=== PATIENT | female | born 1945 | race Caucasian/White ===

== ENCOUNTER 2017-03-10 13:39 | Inpatient (IN) | payer MEDICARE, OTHER ==
[2017-03-10] VITALS (12 sets, daily range): BP systolic 84–113; BP diastolic 48–67
[~2017-03-10] VITALS: Ht 157.5 cm; Wt 39.9 kg
[~2017-03-10 13:39] MED LIST: GABA-826 PO; MAGN400T26 PO; OXYC5TAB3 PO; PANT40TA5 PO; SUCR1TAB26 PO
[2017-03-10] MEDS ORDERED: DULO30CA2 PO (14:15)
[2017-03-10] MEDS ORDERED: PLEASE ENTER HEIGHT AND WEIGHT MC SCH (14:30)
[2017-03-10] MEDS ORDERED: SODIUM CHLORIDE FLUSH 10ML SYR IVF ONE (14:30)
[2017-03-10 14:56] LABS: BLOOD UREA NITROGEN 13 mg/dL (7-18)
[2017-03-10 15:07] LABS: ASPARTATE AMINO TRANSFERASE 19 U/L (15-37)
[2017-03-10 15:08] LABS: ACETAMINOPHEN < 2 mcg/mL (10-30)
[2017-03-10 15:09] LABS: DIFF TOTAL CELLS COUNTED 100 CELL DIFF
[2017-03-10 15:11] LABS: VERIFY COUNTS? YES
[2017-03-10 15:12] LABS: ANISOCYTOSIS 1+; HYPOCHROMIA 1+; OVALOCYTES 1+
[2017-03-10 15:13] LABS: POLYCHROMASIA 1+
[2017-03-10 15:38] LABS: TOTAL IRON BINDING CAPACITY 342 mcg/dL (250-450)
[2017-03-10] MEDS ORDERED: SODIUM CHLORIDE FLUSH 10ML SYR IVF PRN (16:30)
[2017-03-10] MEDS ORDERED: ONDANSETRON 2MG/ML, 2ML IVPush PRN (17:00)
[2017-03-10] MEDS ORDERED: POLYETHYLENE GLYCOL 17 GM PACKET PO PRN (17:00)
[2017-03-10] MEDS ORDERED: ACETAMINOPHEN 325 MG TABLET PO PRN (17:00)
[2017-03-10] MEDS: OXYcodone IR 5MG TABLET PO PRN (19:45)
[2017-03-11 01:32] VITALS: BP 112/64
[2017-03-11 02:23] LABS: DAU SCREEN DISCLAIMER
[2017-03-11 02:30] LABS: PATH.CAST-FLAG NOT PRESENT; SPERM-FLAG NOT PRESENT; SRC-FLAG NOT PRESENT; XTAL-FLAG NOT PRESENT; YLC-FLAG NOT PRESENT
[2017-03-11 05:52] LABS: ASPARTATE AMINO TRANSFERASE 22 U/L (15-37); BLOOD UREA NITROGEN 13 mg/dL (7-18)
[2017-03-11] MEDS ORDERED: POTASSIUM CHLORIDE 20 MEQ TAB.ER.PRT PO ONE (07:00)
[2017-03-11 07:10] VITALS: BP 106/58
[2017-03-11] MEDS ORDERED: PANTOPRAZOLE 40 MG IV IVPush SCH (07:30)
[2017-03-11] MEDS: DULOXETINE 30 MG CAPSULE.DR PO SCH (08:35)
[2017-03-11] MEDS: PANTOPRAZOLE 40 MG IV IVPush SCH ×3 (08:35→20:51)
[2017-03-11] MEDS: CEFTRIAXONE PMX 1GM/50ML 50 ML IV SCH (08:35)
[2017-03-11] MEDS: SENNA/DOCUSATE TABLET PO SCH (08:35)
[2017-03-11 12:57] VITALS: BP 98/58
[2017-03-11] MEDS: OXYcodone IR 5MG TABLET PO PRN (13:58)
[2017-03-11] MEDS ORDERED: GOLYTELY 4,000ML ORAL.SOL ONE (18:37)
[2017-03-11 19:00] VITALS: BP 106/68
[2017-03-11] MEDS ORDERED: GOLYTELY 4,000ML ORAL.SOL PO ONE (20:00)
[2017-03-12 01:30] VITALS: BP 106/61
[2017-03-12 05:37] LABS: BLOOD UREA NITROGEN 9 mg/dL (7-18)
[2017-03-12 07:00] VITALS: BP 144/77
[2017-03-12] MEDS: PANTOPRAZOLE 40 MG IV IVPush SCH ×2 (08:08→21:17)
[2017-03-12] MEDS: CEFTRIAXONE PMX 1GM/50ML 50 ML IV SCH (08:08)
[2017-03-12] MEDS ORDERED: FENTANYL PF 100 MCG/2ML ONE (08:48)
[2017-03-12] MEDS ORDERED: MIDAZOLAM 1 MG/ML, 5ML ONE ×2 (08:48)
[2017-03-12] MEDS ORDERED: DIPHENHYDRAMINE 50 MG/ML, 1ML ONE (08:58)
[2017-03-12] MEDS: SENNA/DOCUSATE TABLET PO SCH (09:00)
[2017-03-12 14:31] VITALS: BP 120/71
[2017-03-12] MEDS: DULOXETINE 30 MG CAPSULE.DR PO SCH (15:48)
[2017-03-12 19:45] VITALS: BP 115/66
[2017-03-12] MEDS: OXYcodone IR 5MG TABLET PO PRN (21:17)
[2017-03-13 01:00] VITALS: BP 128/74
[2017-03-13 05:43] LABS: BLOOD UREA NITROGEN 6 mg/dL (7-18)
[2017-03-13 05:46] LABS: ASPARTATE AMINO TRANSFERASE 28 U/L (15-37)
[2017-03-13 06:44] VITALS: BP 121/70
[2017-03-13] MEDS: SENNA/DOCUSATE TABLET PO SCH (09:00)
[2017-03-13] MEDS: CEFTRIAXONE PMX 1GM/50ML 50 ML IV SCH (09:00)
[2017-03-13] MEDS: DULOXETINE 30 MG CAPSULE.DR PO SCH (10:35)
[2017-03-13] MEDS: PANTOPRAZOLE 40 MG IV IVPush SCH ×2 (10:35→20:44)
[2017-03-13 12:43] VITALS: BP 101/65
[2017-03-13 19:45] VITALS: BP 130/82
[2017-03-13] MEDS: OXYcodone IR 5MG TABLET PO PRN (20:44)
[2017-03-13] MEDS ORDERED: OMNIPAQUE 350 MG/ML, 100ML BOTTLE ONE (21:28)
[2017-03-14] VITALS (7 sets, daily range): BP systolic 95–132; BP diastolic 52–76
[2017-03-14 05:42] LABS: ASPARTATE AMINO TRANSFERASE 28 U/L (15-37); BLOOD UREA NITROGEN 7 mg/dL (7-18)
[2017-03-14 06:31] LABS: DIFF TOTAL CELLS COUNTED 100 CELL DIFF
[2017-03-14 06:33] LABS: VERIFY COUNTS? YES
[2017-03-14 06:34] LABS: POLYCHROMASIA 1+
[2017-03-14 06:35] LABS: ANISOCYTOSIS 1+; OVALOCYTES 1+
[2017-03-14] MEDS: CEFTRIAXONE PMX 1GM/50ML 50 ML IV SCH (08:17)
[2017-03-14] MEDS: DULOXETINE 30 MG CAPSULE.DR PO SCH (08:17)
[2017-03-14] MEDS: SENNA/DOCUSATE TABLET PO SCH (08:17)
[2017-03-14] MEDS: PANTOPRAZOLE 40 MG IV IVPush SCH ×2 (08:17→20:42)
[2017-03-14] MEDS: OXYcodone IR 5MG TABLET PO PRN (20:42)
[2017-03-15 01:07] VITALS: BP 138/70
[2017-03-15 01:09] VITALS: BP 138/70
[2017-03-15 05:50] LABS: DIFF TOTAL CELLS COUNTED 100 CELL DIFF
[2017-03-15 05:58] LABS: BLOOD UREA NITROGEN 7 mg/dL (7-18)
[2017-03-15 07:43] VITALS: BP 123/74
[2017-03-15] MEDS: CEFTRIAXONE PMX 1GM/50ML 50 ML IV SCH (08:12)
[2017-03-15] MEDS: PANTOPRAZOLE 40 MG IV IVPush SCH (08:12)
[2017-03-15] MEDS: DULOXETINE 30 MG CAPSULE.DR PO SCH (08:13)
[2017-03-15] MEDS: SENNA/DOCUSATE TABLET PO SCH (09:00)
[2017-03-15 09:45] LABS: ANISOCYTOSIS 1+; VERIFY COUNTS? YES
[2017-03-15 13:07] LABS: DEAMIDATED GLIADIN IGA 6 units (0-19); IMMUNOGLOBULIN A 321 mg/dL (64-422)
[2017-03-15 13:27] VITALS: BP 125/74
[2017-03-15] MEDS ORDERED: POTASSIUM CHLORIDE 20 MEQ TAB.ER.PRT PO ONE (14:30)
[2017-03-15] MEDS: PANTOPROZOLE 40MG TABLET PO SCH (17:44)
[2017-03-15] MEDS: PROPRANOLOL 10 MG TABLET PO SCH ×2 (17:44→22:30)
[2017-03-15 19:23] VITALS: BP 138/74
[2017-03-15] MEDS: OXYcodone IR 5MG TABLET PO PRN (20:48)
[2017-03-16 00:57] VITALS: BP 121/60
[2017-03-16 05:25] LABS: BLOOD UREA NITROGEN 8 mg/dL (7-18)
[2017-03-16] MEDS: PROPRANOLOL 10 MG TABLET PO SCH (06:03)
[2017-03-16] MEDS: CEFTRIAXONE PMX 1GM/50ML 50 ML IV SCH (08:17)
[2017-03-16] MEDS: DULOXETINE 30 MG CAPSULE.DR PO SCH (08:17)
[2017-03-16] MEDS: PANTOPROZOLE 40MG TABLET PO SCH (08:17)
[2017-03-16] MEDS: SENNA/DOCUSATE TABLET PO SCH (08:17)
[2017-03-16 08:22] VITALS: BP 123/73
[2017-03-16 14:02] VITALS: BP 132/85
[2017-03-16] MEDS ORDERED: PANT40TA5 PO (14:51)
[2017-03-16] MEDS ORDERED: PROP10TA PO (14:51)
== END 2017-03-16 17:00 | disposition home health service (06) | DRG 380 ==
LOC: ED 14:10 → EDIP 16:25 → 4EST 17:51 → 4WST 03-13 23:51 → DCLOUNGE 03-16 16:02
PROVIDERS: ADMIT Hospitalist; ATTEND Hospitalist
PROC: 0DB98ZX Excision of Duodenum, Via Natural or Artificial Opening Endoscopic, Diagnostic (ICD-10-PCS; 2017-03-12)
PROC: 0DB68ZX Excision of Stomach, Via Natural or Artificial Opening Endoscopic, Diagnostic (ICD-10-PCS; 2017-03-12)
PROC: 0DBH8ZX Excision of Cecum, Via Natural or Artificial Opening Endoscopic, Diagnostic (ICD-10-PCS; 2017-03-12)
PROC: 0DBP8ZX Excision of Rectum, Via Natural or Artificial Opening Endoscopic, Diagnostic (ICD-10-PCS; 2017-03-12)
PROC: 0DBN8ZZ Excision of Sigmoid Colon, Via Natural or Artificial Opening Endoscopic (ICD-10-PCS; 2017-03-12)
PROC: 30233N1 Transfusion of Nonautologous Red Blood Cells into Peripheral Vein, Percutaneous Approach (ICD-10-PCS; principal; 2017-03-12 09:00)
DX: K22.10 Ulcer of esophagus without bleeding (principal); E43 Unspecified severe protein-calorie malnutrition; E87.1 Hypo-osmolality and hyponatremia; K86.1 Other chronic pancreatitis; N39.0 Urinary tract infection, site not specified; K25.4 Chronic or unspecified gastric ulcer with hemorrhage; K22.6 Gastro-esophageal laceration-hemorrhage syndrome; I86.4 Gastric varices; D69.6 Thrombocytopenia, unspecified; E03.9 Hypothyroidism, unspecified; D50.0 Iron deficiency anemia secondary to blood loss (chronic); D72.1 Eosinophilia; D73.5 Infarction of spleen; F32.9 Major depressive disorder, single episode, unspecified; F41.9 Anxiety disorder, unspecified; F43.20 Adjustment disorder, unspecified; G62.9 Polyneuropathy, unspecified; G89.29 Other chronic pain; I25.10 Atherosclerotic heart disease of native coronary artery without angina pectoris; K29.50 Unspecified chronic gastritis without bleeding; K52.9 Noninfective gastroenteritis and colitis, unspecified; K57.30 Diverticulosis of large intestine without perforation or abscess without bleeding; K64.9 Unspecified hemorrhoids; K76.0 Fatty (change of) liver, not elsewhere classified; N20.0 Calculus of kidney; R45.850 Homicidal ideations; I95.9 Hypotension, unspecified; K64.4 Residual hemorrhoidal skin tags; D12.5 Benign neoplasm of sigmoid colon; D50.9 Iron deficiency anemia, unspecified; Z79.1 Long term (current) use of non-steroidal anti-inflammatories (NSAID); Z87.11 Personal history of peptic ulcer disease; Z87.19 Personal history of other diseases of the digestive system; Z87.891 Personal history of nicotine dependence
CPT/HCPCS: 36415; 36430; 71010; 74177; 76700; 80048; 80053; 80307; 80329; 81001; 82533; 82607; 82728; 82746; 82784; 83010; 83516; 83540; 83550; 83615; 83690; 83735; 84425; 84443; 85018; 85025; 85610; 85730; 86803; 86850; 86900; 86923; 87077; 87086; 87186; 88305; 93005; 96360; 96361; 99152; 99153; J0696; J2250; J3010; Q9967; C9113; G0480; J1200; P9016

== ENCOUNTER 2017-05-31 14:19 | Inpatient (IN) | payer MEDICARE, OTHER ==
[2017-05-31] VITALS (13 sets, daily range): BP systolic 113–144; BP diastolic 52–88
[~2017-05-31] VITALS: Ht 160 cm; Wt 44.0 kg
[~2017-05-31 14:19] MED LIST changes: +DULO30CA2 PO; +PROP10TA PO; -SUCR1TAB26 PO; +SUCR1TAB33 PO
[2017-05-31] MEDS ORDERED: PANTOPRAZOLE 80 MG in SODIUM CHLORIDE 0.9% 100 ML IV SCH ×3 (14:26→17:00)
[2017-05-31] MEDS ORDERED: PANTOPRAZOLE 80 MG in SODIUM CHLORIDE 0.9% 50 ML IVPB ONE (14:26)
[2017-05-31] MEDS ORDERED: PLEASE ENTER HEIGHT AND WEIGHT MC SCH (14:30)
[2017-05-31] MEDS ORDERED: PLEASE ENTER ALLERGIES MC SCH ×2 (14:30)
[2017-05-31] MEDS ORDERED: SODIUM CHLORIDE 0.9% 1,000ML IVBOLUS ONE (14:30)
[2017-05-31] MEDS ORDERED: IBUP-1221 PO (14:45)
[2017-05-31 15:01] LABS: ASPARTATE AMINO TRANSFERASE 16 U/L (15-37); BLOOD UREA NITROGEN 15 mg/dL (7-18)
[2017-05-31 15:10] LABS: WHITE BLOOD COUNT 2.8 x10^3/uL (3.4-10)
[2017-05-31 15:12] LABS: HEMATOCRIT 12.2 % (34.6-47.8); HEMOGLOBIN 3.9 g/dL (11.7-16.4)
[2017-05-31 15:57] LABS: DIFF TOTAL CELLS COUNTED 100 CELL DIFF
[2017-05-31 16:00] LABS: VERIFY COUNTS? YES
[2017-05-31 16:02] LABS: HYPOCHROMIA 1+
[2017-05-31 16:05] LABS: ANISOCYTOSIS 2+; MICROCYTOSIS 2+; POLYCHROMASIA 1+
[2017-05-31 16:06] LABS: OVALOCYTES 2+
[2017-05-31] MEDS ORDERED: ONDANSETRON 2MG/ML, 2ML IVPush PRN (16:30)
[2017-05-31] MEDS ORDERED: ACETAMINOPHEN 325 MG TABLET PO PRN (16:30)
[2017-05-31] MEDS: PANTOPRAZOLE 80 MG in SODIUM CHLORIDE 0.9% 100 ML IV SCH (21:35)
[2017-06-01 00:06] VITALS: BP 132/78
[2017-06-01 01:40] VITALS: BP 112/60
[2017-06-01 02:51] LABS: HEMATOCRIT 31.3 % (34.6-47.8); HEMOGLOBIN 10.3 g/dL (11.7-16.4); WHITE BLOOD COUNT 4.1 x10^3/uL (3.4-10)
[2017-06-01 03:01] LABS: ASPARTATE AMINO TRANSFERASE 17 U/L (15-37); BLOOD UREA NITROGEN 16 mg/dL (7-18)
[2017-06-01] MEDS: PANTOPRAZOLE 80 MG in SODIUM CHLORIDE 0.9% 100 ML IV SCH (07:49)
[2017-06-01] MEDS: SODIUM CHLORIDE 0.9% 1,000 ML IV SCH ×3 (07:50→10:36)
[2017-06-01 09:19] LABS: HEMOGLOBIN 10.6 g/dL (11.7-16.4)
[2017-06-01] MEDS ORDERED: POTASSIUM CHLORIDE 40 MEQ in SODIUM CHLORIDE 0.9% 500 ML IV ONE (10:00)
[2017-06-01] MEDS: PANTOPRAZOLE 40 MG IV IVPush SCH ×2 (10:30→21:50)
[2017-06-01 14:33] VITALS: BP 156/88
[2017-06-01 14:54] LABS: HEMATOCRIT 31.5 % (34.6-47.8); HEMOGLOBIN 10.5 g/dL (11.7-16.4)
[2017-06-01 20:48] VITALS: BP 136/82
[2017-06-01 21:15] LABS: HEMATOCRIT 31.8 % (34.6-47.8); HEMOGLOBIN 10.5 g/dL (11.7-16.4)
[2017-06-02 01:03] VITALS: BP 153/84
[2017-06-02 02:44] LABS: HEMATOCRIT 30.2 % (34.6-47.8); HEMOGLOBIN 10.1 g/dL (11.7-16.4); WHITE BLOOD COUNT 3.8 x10^3/uL (3.4-10)
[2017-06-02 02:52] LABS: BLOOD UREA NITROGEN 13 mg/dL (7-18)
[2017-06-02] MEDS ORDERED: POTASSIUM CHLORIDE 40 MEQ in SODIUM CHLORIDE 0.9% 500 ML IV ONE (07:00)
[2017-06-02] MEDS ORDERED: MAGNESIUM SULFATE PMX 2GM/50ML 50 ML IV ONE (07:00)
[2017-06-02] MEDS: PANTOPRAZOLE 40 MG IV IVPush SCH ×2 (08:26→20:48)
[2017-06-02 08:30] VITALS: BP 141/88
[2017-06-02] MEDS: POTASSIUM CHLORIDE 20 MEQ TAB.ER.PRT PO SCH ×2 (13:19→21:46)
[2017-06-02 13:25] VITALS: BP 146/80
[2017-06-02] MEDS: SODIUM BICARBONATE 8.4% 150 MEQ in DEXTROSE 5% 1,000 ML IV SCH (15:58)
[2017-06-02 20:02] VITALS: BP 160/95
[2017-06-03 01:02] VITALS: BP 154/90
[2017-06-03 02:45] LABS: HEMATOCRIT 31.7 % (34.6-47.8); HEMOGLOBIN 10.4 g/dL (11.7-16.4); WHITE BLOOD COUNT 3.5 x10^3/uL (3.4-10)
[2017-06-03 02:52] LABS: ASPARTATE AMINO TRANSFERASE 19 U/L (15-37); BLOOD UREA NITROGEN 8 mg/dL (7-18)
[2017-06-03 06:53] VITALS: BP 153/93
[2017-06-03 08:35] LABS: HEMATOCRIT 30.9 % (34.6-47.8); HEMOGLOBIN 10.1 g/dL (11.7-16.4)
[2017-06-03] MEDS: SODIUM BICARBONATE 8.4% 150 MEQ in DEXTROSE 5% 1,000 ML IV SCH (08:47)
[2017-06-03] MEDS: POTASSIUM CHLORIDE 20 MEQ TAB.ER.PRT PO SCH (08:47)
[2017-06-03] MEDS: PANTOPRAZOLE 40 MG IV IVPush SCH ×2 (08:47→20:46)
[2017-06-03] MEDS ORDERED: POTASSIUM PHOSPHATE 44 MEQ in SODIUM CHLORIDE 0.9% 500 ML IV ONE (10:00)
[2017-06-03 13:08] VITALS: BP 162/91
[2017-06-03 14:31] LABS: HEMATOCRIT 32.3 % (34.6-47.8); HEMOGLOBIN 10.5 g/dL (11.7-16.4)
[2017-06-03] MEDS ORDERED: ONDANSETRON 2MG/ML, 2ML IVPush PRN (16:30)
[2017-06-03] MEDS ORDERED: ACETAMINOPHEN 325 MG TABLET PO PRN (16:30)
[2017-06-03 19:23] VITALS: BP 145/80
[2017-06-03 20:57] LABS: HEMATOCRIT 29.5 % (34.6-47.8); HEMOGLOBIN 9.6 g/dL (11.7-16.4)
[2017-06-04 02:37] LABS: HEMATOCRIT 29.4 % (34.6-47.8); HEMOGLOBIN 9.6 g/dL (11.7-16.4); WHITE BLOOD COUNT 3.9 x10^3/uL (3.4-10)
[2017-06-04 02:42] VITALS: BP 123/75
[2017-06-04 02:49] LABS: ASPARTATE AMINO TRANSFERASE 19 U/L (15-37); BLOOD UREA NITROGEN 5 mg/dL (7-18)
[2017-06-04 08:35] LABS: HEMATOCRIT 30.5 % (34.6-47.8); HEMOGLOBIN 9.9 g/dL (11.7-16.4)
[2017-06-04] MEDS ORDERED: ACET325T14 PO (08:40)
[2017-06-04] MEDS ORDERED: TRAM50TA2 PO (08:40)
[2017-06-04] MEDS ORDERED: ONDA4TAB13 SL (08:40)
[2017-06-04] MEDS ORDERED: OMEP-110 PO (08:40)
[2017-06-04] MEDS ORDERED: MAGNESIUM SULFATE PMX 4GM/100M 100 ML IV ONE (09:00)
[2017-06-04 09:09] VITALS: BP 141/79
[2017-06-04] MEDS: PANTOPRAZOLE 40 MG IV IVPush SCH (09:21)
[2017-06-04 13:24] VITALS: BP 126/79
[2017-06-04 14:03] LABS: HEMATOCRIT 32.2 % (34.6-47.8); HEMOGLOBIN 10.5 g/dL (11.7-16.4)
== END 2017-06-04 14:55 | disposition home or self-care (01) | DRG 380 ==
LOC: MERGE 14:19 → ED 16:04 → CCU 16:23 → 4NOR 06-01 13:42 → DCLOUNGE 06-04 14:30
PROVIDERS: ADMIT Hospitalist; ATTEND Hospitalist
PROC: 30233N1 Transfusion of Nonautologous Red Blood Cells into Peripheral Vein, Percutaneous Approach (ICD-10-PCS; principal; 2017-05-31)
DX: K22.11 Ulcer of esophagus with bleeding (principal); E43 Unspecified severe protein-calorie malnutrition; N17.0 Acute kidney failure with tubular necrosis; E87.2 Acidosis; K92.1 Melena; D69.3 Immune thrombocytopenic purpura; G62.9 Polyneuropathy, unspecified; Z68.1 Body mass index [BMI] 19.9 or less, adult; E83.42 Hypomagnesemia; D50.9 Iron deficiency anemia, unspecified; D72.819 Decreased white blood cell count, unspecified; E83.39 Other disorders of phosphorus metabolism; F43.20 Adjustment disorder, unspecified; K57.90 Diverticulosis of intestine, part unspecified, without perforation or abscess without bleeding; E87.6 Hypokalemia; I10 Essential (primary) hypertension; I25.10 Atherosclerotic heart disease of native coronary artery without angina pectoris; I25.2 Old myocardial infarction; Z79.899 Other long term (current) drug therapy; Z87.11 Personal history of peptic ulcer disease; Z87.19 Personal history of other diseases of the digestive system; Z87.891 Personal history of nicotine dependence; I86.4 Gastric varices
CPT/HCPCS: 36415; 36430; 80048; 80053; 83735; 84100; 85014; 85018; 85025; 85610; 85730; 86850; 86900; 86923; 87081; 96361; 96365; 96366; 96375; J3480; J7070; C9113; J3475; J7030; J7040; P9016

== ENCOUNTER → 2017-09-05 | Outpatient (CLI) | payer MEDICARE, OTHER ==
[~2017-09-05] MED LIST changes: +ACET325T14 PO; +IBUP-1221 PO; +OMEP-110 PO; +ONDA4TAB13 SL; +TRAM50TA2 PO
== END | disposition home or self-care (01) ==
LOC: PETCFH 09:10
PROVIDERS: ATTEND Internal Medicine Gastroenterology
DX: K21.9 Gastro-esophageal reflux disease without esophagitis (principal); K25.4 Chronic or unspecified gastric ulcer with hemorrhage; K59.00 Constipation, unspecified; D62 Acute posthemorrhagic anemia; I82.890 Acute embolism and thrombosis of other specified veins; I86.4 Gastric varices; R63.4 Abnormal weight loss; K86.1 Other chronic pancreatitis
CPT/HCPCS: 78264; A9541

== ENCOUNTER 2017-10-06 10:13 | Inpatient (IN) | payer MEDICARE, OTHER ==
[~2017-10-06] VITALS: Ht 160 cm; Wt 33.8 kg
[2017-10-06] VITALS (10 sets, daily range): BP systolic 120–152; BP diastolic 72–84
[2017-10-06] MEDS ORDERED: ASPI-496 PO (10:41)
[2017-10-06] MEDS ORDERED: SODIUM CHLORIDE FLUSH 10ML SYR IVF ONE (11:00)
[2017-10-06] MEDS ORDERED: ONDANSETRON 2MG/ML, 2ML IVPush ONE (11:00)
[2017-10-06] MEDS ORDERED: SODIUM CHLORIDE 0.9% 1,000ML IVBOLUS ONE (11:00)
[2017-10-06] MEDS ORDERED: FAMOTIDINE 20 MG/2 ML IVP ONE (11:00)
[2017-10-06] MEDS ORDERED: FAMOTIDINE 20 MG/2 ML ONE (11:09)
[2017-10-06] MEDS ORDERED: ONDANSETRON 2MG/ML, 2ML ONE (11:09)
[2017-10-06 11:38] LABS: MEAN CORPUSCULAR HEMOGLOBIN 27.5 pg (27.0-34.8); MEAN CORPUSCULAR HGB CONC 33.4 g/dL (32.4-35.8); MEAN CORPUSCULAR VOLUME 82.5 fL (80-100); MEAN PLATELET VOLUME 7.3 fL (7.4-10.4); PLATELET COUNT 109 x10^3/uL (130-400); RED BLOOD COUNT 2.13 x10^6/uL (3.82-5.3); RED CELL DISTRIBUTION WIDTH 14.9 % (9.6-15.2)
[2017-10-06 11:41] LABS: ALBUMIN 2.7 g/dL (3.4-5.0); ANION GAP 10 mmol/L (5-15); CALCIUM 7.8 mg/dL (8.5-10.1); CHLORIDE 107 mmol/L (98-107)
[2017-10-06 11:44] LABS: ALANINE AMINOTRANSFERASE 11 U/L (12-78); ALKALINE PHOSPHATASE 118 U/L (45-117); BILIRUBIN,TOTAL 0.4 mg/dL (0.2-1.0); CREATININE 1.03 mg/dL (0.55-1.02); TOTAL PROTEIN 6.3 g/dL (6.4-8.2)
[2017-10-06 11:53] LABS: BASOPHILS # (AUTO) 0.01 x10^3/uL (0-0.1); BASOPHILS % (AUTO) 0 % (0-1); EOSINOPHILS # (AUTO) 0.01 x10^3/uL (0-0.4); EOSINOPHILS % (AUTO) 0 % (1-7); LYMPHOCYTES # (AUTO) 0.44 x10^3/uL (1-3.4); LYMPHOCYTES % (AUTO) 13 % (22-44); MD MORPH REVIEW ONLY; MONOCYTES # (AUTO) 0.24 x10^3/uL (0.2-0.8); MONOCYTES % (AUTO) 7 % (2-9); NEUTROPHILS % (AUTO) 79 % (42-75)
[2017-10-06 11:54] LABS: ANISOCYTOSIS 1+; HYPOCHROMIA 1+; MICROCYTOSIS 1+; OVALOCYTES 2+; POLYCHROMASIA 1+
[2017-10-06 11:55] LABS: <PLATELET ESTIMATE> ADEQUATE; <PLT MORPHOLOGY> NORMAL PLT MORPH; TEAR DROPS 1+
[2017-10-06] MEDS ORDERED: hydrALAzine 20 MG/ML, 1ML IVPush PRN (13:30)
[2017-10-06] MEDS ORDERED: TEMAZEPAM 15 MG CAPSULE PO PRN (13:30)
[2017-10-06] MEDS ORDERED: ACETAMINOPHEN 325 MG TABLET PO PRN (13:30)
[2017-10-06] MEDS ORDERED: HYDROcodone/APAP 5/325 TABLET PO PRN (13:30)
[2017-10-06] MEDS ORDERED: ONDANSETRON 2MG/ML, 2ML IVPush PRN (13:30)
[2017-10-06] MEDS ORDERED: morphine SULFATE 10 MG/ML, 1ML IVPush PRN (13:30)
[2017-10-06] MEDS ORDERED: POTASSIUM CHLORIDE 40 MEQ in SODIUM CHLORIDE 0.9% 500 ML IV ONE (17:30)
[2017-10-06] MEDS: GABAPENTIN 300 MG CAPSULE PO SCH ×2 (18:17→21:48)
[2017-10-06] MEDS: SODIUM CHLORIDE 0.9% 1,000 ML IV SCH (18:32)
[2017-10-06] MEDS: PANTOPROZOLE 40MG TABLET PO SCH (21:48)
[2017-10-07] VITALS (8 sets, daily range): BP systolic 119–168; BP diastolic 69–97
[2017-10-07 05:10] LABS: ALANINE AMINOTRANSFERASE 12 U/L (12-78); ALBUMIN 2.7 g/dL (3.4-5.0); ANION GAP 9 mmol/L (5-15); CALCIUM 7.6 mg/dL (8.5-10.1); CHLORIDE 110 mmol/L (98-107); CREATININE 0.91 mg/dL (0.55-1.02)
[2017-10-07 05:12] LABS: ALKALINE PHOSPHATASE 116 U/L (45-117); BILIRUBIN,TOTAL 1.7 mg/dL (0.2-1.0); MEAN CORPUSCULAR HEMOGLOBIN 28.5 pg (27.0-34.8); MEAN CORPUSCULAR HGB CONC 33.5 g/dL (32.4-35.8); MEAN PLATELET VOLUME 7.5 fL (7.4-10.4); PLATELET COUNT 94 x10^3/uL (130-400); RED BLOOD COUNT 4.01 x10^6/uL (3.82-5.3); RED CELL DISTRIBUTION WIDTH 16.8 % (9.6-15.2); TOTAL PROTEIN 6.7 g/dL (6.4-8.2)
[2017-10-07 06:07] LABS: MD MORPH REVIEW ONLY
[2017-10-07 06:10] LABS: BASOPHILS # (AUTO) 0.02 x10^3/uL (0-0.1); BASOPHILS % (AUTO) 1 % (0-1); EOSINOPHILS # (AUTO) 0.05 x10^3/uL (0-0.4); EOSINOPHILS % (AUTO) 1 % (1-7); LYMPHOCYTES # (AUTO) 0.74 x10^3/uL (1-3.4); LYMPHOCYTES % (AUTO) 19 % (22-44); MONOCYTES # (AUTO) 0.34 x10^3/uL (0.2-0.8); MONOCYTES % (AUTO) 9 % (2-9); NEUTROPHILS # (AUTO) 2.77 x10^3/uL (1.8-6.8); NEUTROPHILS % (AUTO) 71 % (42-75)
[2017-10-07 06:11] LABS: ANISOCYTOSIS 1+; HYPOCHROMIA 1+; MICROCYTOSIS 1+; POLYCHROMASIA 1+
[2017-10-07 06:12] LABS: <PLATELET ESTIMATE> DECREASED; <PLT MORPHOLOGY> NORMAL PLT MORPH; OVALOCYTES 1+; TEAR DROPS 1+
[2017-10-07] MEDS ORDERED: MAGNESIUM SULFATE PMX 4GM/100M 100 ML IV ONE (08:00)
[2017-10-07] MEDS: PANTOPROZOLE 40MG TABLET PO SCH ×2 (08:59→20:55)
[2017-10-07] MEDS: GABAPENTIN 300 MG CAPSULE PO SCH ×3 (08:59→20:55)
[2017-10-07] MEDS: SODIUM CHLORIDE 0.9% 1,000 ML IV SCH ×2 (13:26→23:29)
[2017-10-08 02:05] VITALS: BP 161/89
[2017-10-08 05:26] LABS: MEAN CORPUSCULAR HEMOGLOBIN 28.5 pg (27.0-34.8); MEAN CORPUSCULAR HGB CONC 34.1 g/dL (32.4-35.8); MEAN CORPUSCULAR VOLUME 83.5 fL (80-100); MEAN PLATELET VOLUME 7.7 fL (7.4-10.4); PLATELET COUNT 97 x10^3/uL (130-400); RED BLOOD COUNT 3.87 x10^6/uL (3.82-5.3); RED CELL DISTRIBUTION WIDTH 16.8 % (9.6-15.2)
[2017-10-08 05:57] LABS: BASOPHILS # (AUTO) 0.02 x10^3/uL (0-0.1); BASOPHILS % (AUTO) 0 % (0-1); EOSINOPHILS # (AUTO) 0.08 x10^3/uL (0-0.4); EOSINOPHILS % (AUTO) 1 % (1-7); LYMPHOCYTES # (AUTO) 0.67 x10^3/uL (1-3.4); LYMPHOCYTES % (AUTO) 12 % (22-44); MD SCAN; MONOCYTES # (AUTO) 0.54 x10^3/uL (0.2-0.8); MONOCYTES % (AUTO) 9 % (2-9); NEUTROPHILS # (AUTO) 4.38 x10^3/uL (1.8-6.8); NEUTROPHILS % (AUTO) 77 % (42-75)
[2017-10-08 07:40] VITALS: BP 132/69
[2017-10-08] MEDS: PANTOPROZOLE 40MG TABLET PO SCH (08:44)
[2017-10-08] MEDS: GABAPENTIN 300 MG CAPSULE PO SCH (08:44)
[2017-10-08] MEDS: FERROUS SULFATE 325 MG TABLET PO SCH ×2 (08:44→12:02)
[2017-10-08] MEDS: SODIUM CHLORIDE 0.9% 1,000 ML IV SCH (08:45)
[2017-10-08] MEDS ORDERED: IRON SUCROSE COMPLEX 100MG/5ML IV SCH (09:00)
[2017-10-08 12:12] VITALS: BP 164/70
[2017-10-08] MEDS ORDERED: GABA300C10 PO (14:33)
[2017-10-08] MEDS ORDERED: FERR-51 PO (14:33)
== END 2017-10-08 16:15 | disposition home or self-care (01) | DRG 808 ==
LOC: ED 11:54 → EDIP 11:55 → ED 12:13 → 5SO 14:23 → 4EST 10-07 15:31 → DCLOUNGE 10-08 16:10
PROVIDERS: ADMIT Internal Medicine; ATTEND Internal Medicine
PROC: 30233N1 Transfusion of Nonautologous Red Blood Cells into Peripheral Vein, Percutaneous Approach (ICD-10-PCS; principal; 2017-10-06)
DX: D61.818 Other pancytopenia (principal); E43 Unspecified severe protein-calorie malnutrition; N17.0 Acute kidney failure with tubular necrosis; Z68.1 Body mass index [BMI] 19.9 or less, adult; G62.9 Polyneuropathy, unspecified; I25.10 Atherosclerotic heart disease of native coronary artery without angina pectoris; Z79.82 Long term (current) use of aspirin; Z87.19 Personal history of other diseases of the digestive system
CPT/HCPCS: 36415; 36430; 80053; 83615; 83735; 84100; 85025; 86677; 86850; 86900; 86923; 96374; J1756; J3480; J3475; J7030; J7040; P9016; S0028

== ENCOUNTER 2018-01-16 10:23 | Inpatient (IN) | payer MEDICARE, OTHER ==
[~2018-01-16] VITALS: Ht 160 cm; Wt 45.9 kg
[2018-01-16] VITALS (16 sets, daily range): BP systolic 98–145; BP diastolic 62–95
[~2018-01-16 10:23] MED LIST changes: +ASPI-496 PO; +FERR-51 PO; +GABA300C10 PO
[2018-01-16] MEDS ORDERED: PANTOPRAZOLE 80 MG in SODIUM CHLORIDE 0.9% 50 ML IVPB ONE (11:31)
[2018-01-16] MEDS ORDERED: PANTOPRAZOLE 80 MG in SODIUM CHLORIDE 0.9% 100 ML IV SCH (11:31)
[2018-01-16] MEDS ORDERED: SODIUM CHLORIDE 0.9% 1,000ML IVBOLUS ONE (12:00)
[2018-01-16] MEDS ORDERED: SODIUM CHLORIDE FLUSH 10ML SYR IVF ONE (12:00)
[2018-01-16 12:04] LABS: INTERNATIONAL NORMALIZED RATIO 0.92 (0.93-1.1); PROTHROMBIN TIME 9.6 Seconds (9.6-11.5)
[2018-01-16 12:11] LABS: ALBUMIN 3.1 g/dL (3.4-5.0); ANION GAP 11 mmol/L (5-15); CALCIUM 7.9 mg/dL (8.5-10.1); CHLORIDE 111 mmol/L (98-107)
[2018-01-16 12:12] LABS: MEAN PLATELET VOLUME 7.6 fL (7.4-10.4); PLATELET COUNT 83 x10^3/uL (130-400); RED BLOOD COUNT 1.78 x10^6/uL (3.82-5.3); RED CELL DISTRIBUTION WIDTH 19.5 % (9.6-15.2)
[2018-01-16 12:15] LABS: ALANINE AMINOTRANSFERASE 15 U/L (12-78); ALKALINE PHOSPHATASE 108 U/L (45-117); BILIRUBIN,TOTAL 0.7 mg/dL (0.2-1.0); CREATININE 1.28 mg/dL (0.55-1.02); TOTAL PROTEIN 6.2 g/dL (6.4-8.2)
[2018-01-16 12:28] LABS: BASOPHILS # (AUTO) 0.02 x10^3/uL (0-0.1); BASOPHILS % (AUTO) 0 % (0-1); EOSINOPHILS # (AUTO) 0.09 x10^3/uL (0-0.4); EOSINOPHILS % (AUTO) 2 % (1-7); LYMPHOCYTES # (AUTO) 0.86 x10^3/uL (1-3.4); LYMPHOCYTES % (AUTO) 16 % (22-44); MD MORPH REVIEW ONLY; MONOCYTES # (AUTO) 0.25 x10^3/uL (0.2-0.8); MONOCYTES % (AUTO) 5 % (2-9); NEUTROPHILS # (AUTO) 4.17 x10^3/uL (1.8-6.8); NEUTROPHILS % (AUTO) 77 % (42-75)
[2018-01-16 12:30] LABS: <PLATELET ESTIMATE> DECREASED; <PLT MORPHOLOGY> NORMAL PLT MORPH; ANISOCYTOSIS 1+; POLYCHROMASIA 2+
[2018-01-16 12:32] LABS: OVALOCYTES 1+; TEAR DROPS 1+
[2018-01-16 13:42] LABS: MICROSCOPIC AUTO
[2018-01-16 13:54] LABS: CULTURE INDICATED? YES
[2018-01-16] MEDS ORDERED: LIDOCAINE PATCH TD (14:09)
[2018-01-16] MEDS ORDERED: ACETAMINOPHEN 325 MG TABLET PO PRN ×2 (14:30→15:00)
[2018-01-16] MEDS ORDERED: ONDANSETRON 2MG/ML, 2ML IVPush PRN (15:00)
[2018-01-16] MEDS ORDERED: ONDANSETRON ODT 4 MG PO PRN (15:00)
[2018-01-16] MEDS: SODIUM CHLORIDE 0.9% 1,000 ML IV SCH (15:37)
[2018-01-16] MEDS: PANTOPRAZOLE 80 MG in SODIUM CHLORIDE 0.9% 100 ML IV SCH ×2 (15:37→23:44)
[2018-01-16] MEDS: GABAPENTIN 300 MG CAPSULE PO SCH ×2 (15:37→20:56)
[2018-01-16] MEDS: LIDODERM 5% PATCH TD SCH (15:37)
[2018-01-16] MEDS: CEFTRIAXONE PMX 1GM/50ML 50 ML IV SCH (15:37)
[2018-01-16] MEDS ORDERED: GOLYTELY 4,000ML ORAL.SOL PO ONE (18:00)
[2018-01-17] VITALS (13 sets, daily range): BP systolic 110–165; BP diastolic 70–87
[2018-01-17] MEDS: SODIUM CHLORIDE 0.9% 1,000 ML IV SCH (03:41)
[2018-01-17] MEDS ORDERED: GOLYTELY 4,000ML ORAL.SOL PO ONE (05:00)
[2018-01-17 05:48] LABS: CALCIUM 7.5 mg/dL (8.5-10.1); CHLORIDE 116 mmol/L (98-107)
[2018-01-17 05:54] LABS: ANION GAP 10 mmol/L (5-15); CREATININE 1.15 mg/dL (0.55-1.02)
[2018-01-17 06:20] LABS: MEAN CORPUSCULAR HEMOGLOBIN 31.3 pg (27.0-34.8); MEAN CORPUSCULAR HGB CONC 34.8 g/dL (32.4-35.8); MEAN CORPUSCULAR VOLUME 89.8 fL (80-100); RED BLOOD COUNT 4.54 x10^6/uL (3.82-5.3); RED CELL DISTRIBUTION WIDTH 16.6 % (9.6-15.2)
[2018-01-17 06:52] LABS: ANISOCYTOSIS 1+; BASOPHILS # (AUTO) 0.03 x10^3/uL (0-0.1); BASOPHILS % (AUTO) 1 % (0-1); EOSINOPHILS # (AUTO) 0.08 x10^3/uL (0-0.4); EOSINOPHILS % (AUTO) 2 % (1-7); LYMPHOCYTES # (AUTO) 0.72 x10^3/uL (1-3.4); LYMPHOCYTES % (AUTO) 16 % (22-44); MD MORPH REVIEW ONLY; MEAN PLATELET VOLUME 7.7 fL (7.4-10.4); MONOCYTES # (AUTO) 0.24 x10^3/uL (0.2-0.8); MONOCYTES % (AUTO) 5 % (2-9); NEUTROPHILS # (AUTO) 3.49 x10^3/uL (1.8-6.8); NEUTROPHILS % (AUTO) 76 % (42-75); PLATELET COUNT 63 x10^3/uL (130-400)
[2018-01-17 06:53] LABS: POLYCHROMASIA 1+
[2018-01-17 06:54] LABS: <PLATELET ESTIMATE> DECREASED; <PLT MORPHOLOGY> NORMAL PLT MORPH
[2018-01-17] MEDS ORDERED: MIDAZOLAM 1 MG/ML, 5ML ONE (08:01)
[2018-01-17] MEDS ORDERED: FENTANYL PF 100 MCG/2ML ONE ×2 (08:01)
[2018-01-17] MEDS ORDERED: POTASSIUM CHLORIDE 20 MEQ TAB.ER.PRT PO ONE (09:00)
[2018-01-17] MEDS: GABAPENTIN 300 MG CAPSULE PO SCH ×3 (10:00→21:22)
[2018-01-17] MEDS: D5%-0.45NACL+KCL 20MEQ 1,000 ML IV SCH (10:00)
[2018-01-17] MEDS ORDERED: MAGNESIUM SULFATE PMX 4GM/100M 100 ML IV ONE (15:30)
[2018-01-17] MEDS: LIDODERM 5% PATCH TD SCH (16:53)
[2018-01-17] MEDS: CEFTRIAXONE PMX 1GM/50ML 50 ML IV SCH (16:54)
[2018-01-17] MEDS: PANTOPRAZOLE 80 MG in SODIUM CHLORIDE 0.9% 100 ML IV SCH (18:00)
[2018-01-18] MEDS: D5%-0.45NACL+KCL 20MEQ 1,000 ML IV SCH (01:08)
[2018-01-18 01:11] VITALS: BP 147/74
[2018-01-18] MEDS: PANTOPRAZOLE 80 MG in SODIUM CHLORIDE 0.9% 100 ML IV SCH (04:06)
[2018-01-18 06:12] LABS: MEAN CORPUSCULAR HEMOGLOBIN 30.8 pg (27.0-34.8); MEAN CORPUSCULAR HGB CONC 33.9 g/dL (32.4-35.8); MEAN CORPUSCULAR VOLUME 90.8 fL (80-100); RED BLOOD COUNT 4.41 x10^6/uL (3.82-5.3); RED CELL DISTRIBUTION WIDTH 16.8 % (9.6-15.2)
[2018-01-18 06:17] LABS: ANION GAP 11 mmol/L (5-15); CALCIUM 7.3 mg/dL (8.5-10.1); CHLORIDE 111 mmol/L (98-107); CREATININE 1.05 mg/dL (0.55-1.02)
[2018-01-18 06:32] LABS: BASOPHILS # (AUTO) 0.01 x10^3/uL (0-0.1); BASOPHILS % (AUTO) 0 % (0-1); EOSINOPHILS # (AUTO) 0.09 x10^3/uL (0-0.4); EOSINOPHILS % (AUTO) 2 % (1-7); LYMPHOCYTES % (AUTO) 14 % (22-44); MD SCAN; MEAN PLATELET VOLUME 7.4 fL (7.4-10.4); MONOCYTES # (AUTO) 0.31 x10^3/uL (0.2-0.8); MONOCYTES % (AUTO) 7 % (2-9); NEUTROPHILS # (AUTO) 3.36 x10^3/uL (1.8-6.8); NEUTROPHILS % (AUTO) 77 % (42-75); PLATELET COUNT 63 x10^3/uL (130-400)
[2018-01-18] MEDS: GABAPENTIN 300 MG CAPSULE PO SCH (08:06)
[2018-01-18 10:24] VITALS: BP 161/76
[2018-01-18] MEDS ORDERED: CEFD300C37 PO (14:34)
[2018-01-18 14:52] VITALS: BP 163/89
[2018-01-18] MEDS ORDERED: POTASSIUM CHLORIDE 20 MEQ TAB.ER.PRT PO SCH (17:00)
== END 2018-01-18 16:00 | disposition home or self-care (01) | DRG 378 ==
LOC: MERGE 10:23 → ED 13:01 → EDIP 13:02 → 4WST 14:35
PROVIDERS: ADMIT Hospitalist; ATTEND Hospitalist
PROC: 30233N1 Transfusion of Nonautologous Red Blood Cells into Peripheral Vein, Percutaneous Approach (ICD-10-PCS; 2018-01-16)
PROC: 0DB98ZX Excision of Duodenum, Via Natural or Artificial Opening Endoscopic, Diagnostic (ICD-10-PCS; 2018-01-17)
PROC: 0DJD8ZZ Inspection of Lower Intestinal Tract, Via Natural or Artificial Opening Endoscopic (ICD-10-PCS; principal; 2018-01-17 09:00)
DX: K55.21 Angiodysplasia of colon with hemorrhage (principal); D62 Acute posthemorrhagic anemia; N17.9 Acute kidney failure, unspecified; E87.0 Hyperosmolality and hypernatremia; R64 Cachexia; E44.0 Moderate protein-calorie malnutrition; D69.59 Other secondary thrombocytopenia; E11.40 Type 2 diabetes mellitus with diabetic neuropathy, unspecified; E83.42 Hypomagnesemia; E87.2 Acidosis; I47.1 Supraventricular tachycardia; N39.0 Urinary tract infection, site not specified; K22.10 Ulcer of esophagus without bleeding; Z68.1 Body mass index [BMI] 19.9 or less, adult; B96.20 Unspecified Escherichia coli [E. coli] as the cause of diseases classified elsewhere; E87.6 Hypokalemia; G89.4 Chronic pain syndrome; I10 Essential (primary) hypertension; I25.10 Atherosclerotic heart disease of native coronary artery without angina pectoris; I34.1 Nonrheumatic mitral (valve) prolapse; I35.0 Nonrheumatic aortic (valve) stenosis; K25.4 Chronic or unspecified gastric ulcer with hemorrhage; K57.31 Diverticulosis of large intestine without perforation or abscess with bleeding; Z66 Do not resuscitate; Z86.010 Personal history of colon polyps; Z86.718 Personal history of other venous thrombosis and embolism; Z87.11 Personal history of peptic ulcer disease; Z87.19 Personal history of other diseases of the digestive system; Z87.891 Personal history of nicotine dependence; Z90.710 Acquired absence of both cervix and uterus; Z91.14 Patient's other noncompliance with medication regimen
CPT/HCPCS: 36415; 71045; 80048; 80053; 81001; 82607; 82728; 83036; 83540; 83550; 83605; 83735; 84100; 84443; 84466; 85025; 85610; 85730; 86850; 86900; 86923; 87077; 87086; 87186; 88305; 93005; 99152; 99153; J0696; J2250; J3010; C9113; J3475; J3480; J7030; P9016

== ENCOUNTER 2018-07-04 16:56 | Inpatient (IN) | payer MEDICARE, OTHER ==
[~2018-07-04] VITALS: Ht 160 cm; Wt 54.8 kg
[~2018-07-04 16:56] MED LIST changes: +CEFD300C37 PO; +LIDOCAINE PATCH TD
[2018-07-04] MEDS ORDERED: IBUPROFEN 200 MG TABLET PO ONE (17:30)
[2018-07-04] MEDS ORDERED: SODIUM CHLORIDE 0.9% 1,000ML IVBOLUS ONE ×3 (17:30→20:00)
[2018-07-04] MEDS ORDERED: SODIUM CHLORIDE FLUSH 10ML SYR IVF ONE (17:30)
[2018-07-04] MEDS ORDERED: IBUPROFEN 200 MG TABLET ONE (17:38)
[2018-07-04 17:55] LABS: ALANINE AMINOTRANSFERASE 24 U/L (12-78); ALBUMIN 2.2 g/dL (3.4-5.0); CALCIUM 7.3 mg/dL (8.5-10.1); CHLORIDE 104 mmol/L (98-107)
[2018-07-04 18:00] LABS: ALKALINE PHOSPHATASE 147 U/L (45-117); BILIRUBIN,TOTAL 0.9 mg/dL (0.2-1.0); TOTAL PROTEIN 5.8 g/dL (6.4-8.2); TROPONIN I 0.055 ng/mL (0.000-0.045)
[2018-07-04 18:04] LABS: MEAN CORPUSCULAR HEMOGLOBIN 30.4 pg (27.0-34.8); MEAN CORPUSCULAR HGB CONC 34.9 g/dL (32.4-35.8); MEAN CORPUSCULAR VOLUME 87.2 fL (80-100); RED BLOOD COUNT 3.49 x10^6/uL (3.82-5.3); RED CELL DISTRIBUTION WIDTH 14.3 % (9.6-15.2)
[2018-07-04 18:07] LABS: PLATELET COUNT 45 x10^3/uL (130-400)
[2018-07-04 18:09] LABS: ANION GAP 12 mmol/L (5-15)
[2018-07-04 18:19] LABS: BASOPHILS % (AUTO) 0 % (0-1); EOSINOPHILS # (AUTO) 0.02 x10^3/uL (0-0.4); EOSINOPHILS % (AUTO) 0 % (1-7); LYMPHOCYTES # (AUTO) 0.24 x10^3/uL (1-3.4); LYMPHOCYTES % (AUTO) 4 % (22-44); MD MORPH REVIEW ONLY; MONOCYTES # (AUTO) 0.09 x10^3/uL (0.2-0.8); MONOCYTES % (AUTO) 1 % (2-9); NEUTROPHILS # (AUTO) 6.29 x10^3/uL (1.8-6.8); NEUTROPHILS % (AUTO) 95 % (42-75)
[2018-07-04] MEDS ORDERED: GABA300C10 PO (18:22)
[2018-07-04] MEDS ORDERED: OMEP20TA62 PO (18:22)
[2018-07-04] MEDS ORDERED: LIDO700A20 TD (18:22)
[2018-07-04 18:24] LABS: ANISOCYTOSIS 1+
[2018-07-04 18:25] LABS: <PLATELET ESTIMATE> DECREASED; <PLT MORPHOLOGY> NORMAL PLT MORPH; TOXIC GRAN 1+
[2018-07-04] MEDS ORDERED: SODIUM CHLORIDE 0.9% 1,000 ML IV ONE (18:25)
[2018-07-04] MEDS ORDERED: POTASSIUM CHLORIDE 40 MEQ in SODIUM CHLORIDE 0.9% 500 ML IV ONE ×2 (18:30→22:30)
[2018-07-04] MEDS ORDERED: VANCOMYCIN PER PHARMACY MC PRN ×2 (19:00→22:30)
[2018-07-04] MEDS ORDERED: CEFEPIME 2 GM in DEXTROSE 5% 100 ML IV ONE (19:00)
[2018-07-04] MEDS ORDERED: VANCOMYCIN PMX 1GM/200ML 200 ML IV ONE (19:00)
[2018-07-04 20:04] LABS: CULTURE INDICATED? YES; MICROSCOPIC INDICATED
[2018-07-04] MEDS ORDERED: NOREPINEPHRINE 4 MG in SODIUM CHLORIDE 0.9% 246 ML IV PRN (20:16)
[2018-07-04] MEDS ORDERED: LIDOCAINE-MPF 1%, 5ML ONE (20:31)
[2018-07-04] MEDS ORDERED: SODIUM CHLORIDE 0.9% 1,000 ML IV SCH (21:55)
[2018-07-04] MEDS ORDERED: hydrALAzine 20 MG/ML, 1ML IVPush PRN (22:00)
[2018-07-04] MEDS ORDERED: ONDANSETRON ODT 4 MG PO PRN (22:00)
[2018-07-04] MEDS ORDERED: OXYcodone IR 5MG TABLET PO PRN (22:00)
[2018-07-04] MEDS ORDERED: POLYETHYLENE GLYCOL 17 GM PACKET PO PRN (22:00)
[2018-07-04] MEDS ORDERED: PROMETHAZINE 25 MG/ML, 1ML IM PRN (22:00)
[2018-07-04] MEDS ORDERED: ONDANSETRON 2MG/ML, 2ML IVPush PRN (22:00)
[2018-07-04] MEDS ORDERED: DOCUSATE 100 MG CAPSULE PO PRN (22:00)
[2018-07-04] MEDS ORDERED: morphine SULFATE 10 MG/ML, 1ML IVPush PRN (22:00)
[2018-07-04] MEDS ORDERED: BISACODYL 10 MG SUPP PR PRN (22:00)
[2018-07-04] MEDS: LIDODERM 5% PATCH TD SCH (22:30)
[2018-07-04] MEDS ORDERED: GABAPENTIN 100 MG CAPSULE PO PRN (22:30)
[2018-07-04 22:58] LABS: HEMOGLOBIN A1C 5.9 % (4.2-6.3)
[2018-07-04 22:59] LABS: FREE T4 (FREE THYROXINE) 1.57 ng/dL (0.76-1.46); THYROID STIMULATING HORMONE 2.71 mIU/L (0.358-3.740)
[2018-07-04] MEDS ORDERED: OMNIPAQUE 350 MG/ML, 100ML BOTTLE ONE (23:05)
[2018-07-05] VITALS (13 sets, daily range): BP systolic 104–126; BP diastolic 53–66
[2018-07-05] MEDS ORDERED: ALBUTEROL SULFATE 2.5 MG/3 ML NPPB PRN
[2018-07-05] MEDS: PIPERACILLIN/TAZO/PMX 3.375GM 50 ML IV SCH ×5 (00:47→23:18)
[2018-07-05] MEDS: FERROUS SULFATE 325 MG TABLET PO SCH ×4 (00:47→17:28)
[2018-07-05] MEDS ORDERED: POTASSIUM CHLORIDE 40 MEQ in SODIUM CHLORIDE 0.9% 100 ML IV ONE (01:00)
[2018-07-05] MEDS ORDERED: PHARMACOKINETIC CONSULTATION MC ONE (01:00)
[2018-07-05] MEDS ORDERED: PHARMACOKINETIC MONITORING MC PRN (01:00)
[2018-07-05 04:33] LABS: MEAN CORPUSCULAR HEMOGLOBIN 30.1 pg (27.0-34.8); MEAN CORPUSCULAR HGB CONC 34.6 g/dL (32.4-35.8); MEAN CORPUSCULAR VOLUME 87.1 fL (80-100); MEAN PLATELET VOLUME 9.5 fL (7.4-10.4); RED BLOOD COUNT 2.94 x10^6/uL (3.82-5.3)
[2018-07-05] MEDS: NOREPINEPHRINE 4 MG in SODIUM CHLORIDE 0.9% 246 ML IV PRN ×2 (04:33→14:20)
[2018-07-05 04:41] LABS: CHLORIDE 116 mmol/L (98-107); PLATELET COUNT 42 x10^3/uL (130-400)
[2018-07-05 04:47] LABS: ALANINE AMINOTRANSFERASE 21 U/L (12-78); ALKALINE PHOSPHATASE 96 U/L (45-117); ANION GAP 9 mmol/L (5-15); BILIRUBIN,TOTAL 0.7 mg/dL (0.2-1.0); CALCIUM 6.5 mg/dL (8.5-10.1); CHOL/HDL RATIO 8.5; CHOLESTEROL, TOTAL 68 mg/dL (140-239); CREATININE 1.05 mg/dL (0.55-1.02); HDL CHOL % 12 % (28-40); HDL CHOLESTEROL (DIRECT) 8 mg/dL (40-60); LDL CHOLESTEROL,CALCULATED 17 mg/dL (54-169); LDL/HDL RATIO 2.1 (0.5-3.0); TRIGLYCERIDES 217 mg/dL (50-200); VLDL CHOLESTEROL 43 mg/dL (0-25)
[2018-07-05 04:53] LABS: MD YES
[2018-07-05 04:54] LABS: ANISOCYTOSIS 1+; BAND#(MANUAL) 1.04 x10^3/uL; BANDS%(MANUAL) 5 % (0-7); EOS#(MANUAL) 0.21 x10^3/uL (0.0-0.4); EOS% (MANUAL) 1 % (1-7); LYMPH#(MANUAL) 0.21 x10^3/uL (1-3.4); LYMPHS% (MANUAL) 1 % (22-44); MONOS#(MANUAL) 0.42 x10^3/uL (0.3-2.7); MONOS% (MANUAL) 2 % (2-9); SEG#(MANUAL) 18.93 x10^3/uL (1.8-6.8); SEGS% (MANUAL) 91 % (42-75)
[2018-07-05 04:55] LABS: <PLATELET ESTIMATE> DECREASED; <PLT MORPHOLOGY> NORMAL PLT MORPH; TOXIC GRAN 1+
[2018-07-05] MEDS ORDERED: PANTOPRAZOLE 40 MG IV IVPush SCH (07:30)
[2018-07-05] MEDS: LIDODERM 5% PATCH TD SCH ×3 (08:17→20:54)
[2018-07-05 09:11] LABS: INTERNATIONAL NORMALIZED RATIO 1.12 (0.93-1.1); PROTHROMBIN TIME 11.6 Seconds (9.6-11.5)
[2018-07-05] MEDS ORDERED: PHYTONADIONE 10 MG in SODIUM CHLORIDE 0.9% 50 ML IV ONE (13:00)
[2018-07-05 13:42] LABS: TROPONIN I 0.231 ng/mL (0.000-0.045)
[2018-07-05] MEDS ORDERED: MAGNESIUM SULFATE 4 GM in SODIUM CHLORIDE 0.9% 100 ML IV ONE (17:00)
[2018-07-05] MEDS ORDERED: MAGNESIUM SULFATE PMX 4GM/100M 100 ML IV ONE (17:00)
[2018-07-05 18:14] LABS: MEAN CORPUSCULAR HEMOGLOBIN 30.3 pg (27.0-34.8); MEAN CORPUSCULAR HGB CONC 34.3 g/dL (32.4-35.8); MEAN CORPUSCULAR VOLUME 88.2 fL (80-100); MEAN PLATELET VOLUME 8.8 fL (7.4-10.4); RED CELL DISTRIBUTION WIDTH 14.5 % (9.6-15.2)
[2018-07-05 18:17] LABS: PLATELET COUNT 32 x10^3/uL (130-400)
[2018-07-05] MEDS: SODIUM CHLORIDE 0.9% 1,000 ML IV SCH (18:36)
[2018-07-05 18:37] LABS: TROPONIN I 0.274 ng/mL (0.000-0.045)
[2018-07-05 18:49] LABS: BASOPHILS # (AUTO) 0.01 x10^3/uL (0-0.1); BASOPHILS % (AUTO) 0 % (0-1); EOSINOPHILS # (AUTO) 0.05 x10^3/uL (0-0.4); EOSINOPHILS % (AUTO) 0 % (1-7); LYMPHOCYTES # (AUTO) 0.49 x10^3/uL (1-3.4); LYMPHOCYTES % (AUTO) 4 % (22-44); MD MORPH REVIEW ONLY; MONOCYTES # (AUTO) 0.74 x10^3/uL (0.2-0.8); MONOCYTES % (AUTO) 7 % (2-9); NEUTROPHILS # (AUTO) 9.89 x10^3/uL (1.8-6.8); NEUTROPHILS % (AUTO) 89 % (42-75)
[2018-07-05 18:52] LABS: <RBC MORPHOLOGY> NORMAL; TOXIC GRAN 1+
[2018-07-05 18:53] LABS: <PLATELET ESTIMATE> DECREASED; <PLT MORPHOLOGY> NORMAL PLT MORPH
[2018-07-05] MEDS ORDERED: VANCOMYCIN PMX 1GM/200ML 200 ML IVPB SCH (20:00)
[2018-07-05] MEDS: PANTOPRAZOLE 40 MG IV IVPush SCH (21:01)
[2018-07-06] MEDS: PIPERACILLIN/TAZO/PMX 3.375GM 50 ML IV SCH ×4 (04:49→22:31)
[2018-07-06 05:07] LABS: MEAN CORPUSCULAR HEMOGLOBIN 30.2 pg (27.0-34.8); MEAN CORPUSCULAR HGB CONC 34.6 g/dL (32.4-35.8); MEAN CORPUSCULAR VOLUME 87.2 fL (80-100); RED BLOOD COUNT 2.58 x10^6/uL (3.82-5.3); RED CELL DISTRIBUTION WIDTH 13.9 % (9.6-15.2)
[2018-07-06 05:09] LABS: ALBUMIN 1.8 g/dL (3.4-5.0); ANION GAP 14 mmol/L (5-15); CALCIUM 6.9 mg/dL (8.5-10.1); CHLORIDE 111 mmol/L (98-107)
[2018-07-06 05:12] LABS: ALANINE AMINOTRANSFERASE 17 U/L (12-78); ALKALINE PHOSPHATASE 76 U/L (45-117); BILIRUBIN,TOTAL 0.8 mg/dL (0.2-1.0); CREATININE 1.04 mg/dL (0.55-1.02); TOTAL PROTEIN 4.9 g/dL (6.4-8.2)
[2018-07-06 05:22] LABS: PLATELET COUNT 34 x10^3/uL (130-400)
[2018-07-06 05:49] LABS: BASOPHILS # (AUTO) 0.01 x10^3/uL (0-0.1); BASOPHILS % (AUTO) 0 % (0-1); EOSINOPHILS # (AUTO) 0.06 x10^3/uL (0-0.4); EOSINOPHILS % (AUTO) 1 % (1-7); LYMPHOCYTES # (AUTO) 0.58 x10^3/uL (1-3.4); LYMPHOCYTES % (AUTO) 6 % (22-44); MD SCAN; MONOCYTES # (AUTO) 1.01 x10^3/uL (0.2-0.8); MONOCYTES % (AUTO) 11 % (2-9); NEUTROPHILS # (AUTO) 7.35 x10^3/uL (1.8-6.8); NEUTROPHILS % (AUTO) 82 % (42-75)
[2018-07-06 05:59] LABS: OCCULT BLOOD NEGATIVE (NEGATIVE)
[2018-07-06] MEDS: SODIUM CHLORIDE 0.9% 1,000 ML IV SCH (06:47)
[2018-07-06] MEDS: PANTOPRAZOLE 40 MG IV IVPush SCH ×2 (08:31→20:41)
[2018-07-06] MEDS: FERROUS SULFATE 325 MG TABLET PO SCH ×3 (08:31→18:01)
[2018-07-06] MEDS ORDERED: POTASSIUM PHOSPHATE 44 MEQ in SODIUM CHLORIDE 0.9% 500 ML IV ONE (09:00)
[2018-07-06] MEDS: LIDODERM 5% PATCH TD SCH ×2 (09:00→20:40)
[2018-07-06] MEDS ORDERED: POTASSIUM CHLORIDE 20 MEQ TAB.ER.PRT PO ONE (09:00)
[2018-07-06 14:30] LABS: MEAN CORPUSCULAR HEMOGLOBIN 29.9 pg (27.0-34.8); MEAN CORPUSCULAR HGB CONC 34.5 g/dL (32.4-35.8); MEAN CORPUSCULAR VOLUME 86.5 fL (80-100); MEAN PLATELET VOLUME 9.4 fL (7.4-10.4); RED BLOOD COUNT 2.78 x10^6/uL (3.82-5.3)
[2018-07-06 14:39] LABS: BASOPHILS # (AUTO) 0.02 x10^3/uL (0-0.1); BASOPHILS % (AUTO) 0 % (0-1); EOSINOPHILS # (AUTO) 0.05 x10^3/uL (0-0.4); EOSINOPHILS % (AUTO) 1 % (1-7); LYMPHOCYTES # (AUTO) 0.56 x10^3/uL (1-3.4); LYMPHOCYTES % (AUTO) 7 % (22-44); MD SCAN; MONOCYTES # (AUTO) 0.94 x10^3/uL (0.2-0.8); MONOCYTES % (AUTO) 11 % (2-9); NEUTROPHILS # (AUTO) 6.82 x10^3/uL (1.8-6.8); NEUTROPHILS % (AUTO) 81 % (42-75)
[2018-07-06 14:40] LABS: PLATELET COUNT 41 x10^3/uL (130-400)
[2018-07-06 18:39] VITALS: BP 121/73
[2018-07-06 19:11] VITALS: BP 144/84
[2018-07-07 00:43] VITALS: BP 134/79
[2018-07-07] MEDS ORDERED: NS + 20MEQ KCL 1,000 ML IV SCH ×2 (01:30→10:30)
[2018-07-07] MEDS ORDERED: IBUPROFEN 200 MG TABLET PO PRN (01:30)
[2018-07-07] MEDS: ACETAMINOPHEN 325 MG TABLET PO PRN (01:55)
[2018-07-07 03:30] VITALS: BP 113/65
[2018-07-07] MEDS: PIPERACILLIN/TAZO/PMX 3.375GM 50 ML IV SCH ×4 (03:58→22:37)
[2018-07-07 05:05] LABS: MEAN CORPUSCULAR HEMOGLOBIN 30.9 pg (27.0-34.8); MEAN CORPUSCULAR HGB CONC 35.6 g/dL (32.4-35.8); MEAN CORPUSCULAR VOLUME 86.6 fL (80-100); MEAN PLATELET VOLUME 8.8 fL (7.4-10.4); RED BLOOD COUNT 2.58 x10^6/uL (3.82-5.3); RED CELL DISTRIBUTION WIDTH 14.1 % (9.6-15.2)
[2018-07-07 05:11] LABS: PLATELET COUNT 47 x10^3/uL (130-400)
[2018-07-07 05:16] LABS: ALBUMIN 1.8 g/dL (3.4-5.0); ANION GAP 13 mmol/L (5-15); CALCIUM 6.9 mg/dL (8.5-10.1); CHLORIDE 111 mmol/L (98-107)
[2018-07-07 05:21] LABS: ALANINE AMINOTRANSFERASE 19 U/L (12-78); ALKALINE PHOSPHATASE 77 U/L (45-117); BILIRUBIN,TOTAL 0.7 mg/dL (0.2-1.0); CREATININE 1.12 mg/dL (0.55-1.02); TOTAL PROTEIN 5.2 g/dL (6.4-8.2)
[2018-07-07 05:42] LABS: BASOPHILS # (AUTO) 0.01 x10^3/uL (0-0.1); BASOPHILS % (AUTO) 0 % (0-1); EOSINOPHILS # (AUTO) 0.07 x10^3/uL (0-0.4); EOSINOPHILS % (AUTO) 1 % (1-7); LYMPHOCYTES % (AUTO) 5 % (22-44); MD SCAN; MONOCYTES # (AUTO) 0.71 x10^3/uL (0.2-0.8); MONOCYTES % (AUTO) 9 % (2-9); NEUTROPHILS # (AUTO) 6.96 x10^3/uL (1.8-6.8); NEUTROPHILS % (AUTO) 85 % (42-75)
[2018-07-07 06:43] VITALS: BP 109/63
[2018-07-07] MEDS: LIDODERM 5% PATCH TD SCH ×2 (09:00→22:37)
[2018-07-07] MEDS ORDERED: MAGNESIUM SULFATE PMX 2GM/50ML 50 ML IV ONE (09:30)
[2018-07-07] MEDS ORDERED: POTASSIUM CHLORIDE 20 MEQ TAB.ER.PRT PO ONE (09:30)
[2018-07-07] MEDS: PANTOPRAZOLE 40 MG IV IVPush SCH (10:50)
[2018-07-07] MEDS: FERROUS SULFATE 325 MG TABLET PO SCH ×3 (10:51→16:51)
[2018-07-07 12:13] VITALS: BP 119/76
[2018-07-07 14:30] LABS: CLOSTRIDIUM DIFFICILE ANTIGEN NEGATIVE; CLOSTRIDIUM DIFFICILE TOXIN NEGATIVE (Negative)
[2018-07-07] MEDS: PANTOPROZOLE 40MG TABLET PO SCH (18:18)
[2018-07-07 20:56] VITALS: BP 144/81
[2018-07-08] VITALS (7 sets, daily range): BP systolic 110–165; BP diastolic 61–89
[2018-07-08] MEDS: PIPERACILLIN/TAZO/PMX 3.375GM 50 ML IV SCH (04:44)
[2018-07-08 05:35] LABS: MEAN CORPUSCULAR HEMOGLOBIN 30.2 pg (27.0-34.8); MEAN CORPUSCULAR HGB CONC 34.7 g/dL (32.4-35.8); MEAN PLATELET VOLUME 9.8 fL (7.4-10.4); PLATELET COUNT 55 x10^3/uL (130-400); RED BLOOD COUNT 2.45 x10^6/uL (3.82-5.3); RED CELL DISTRIBUTION WIDTH 14.2 % (9.6-15.2)
[2018-07-08 05:57] LABS: CHLORIDE 110 mmol/L (98-107)
[2018-07-08 06:19] LABS: ALANINE AMINOTRANSFERASE 14 U/L (12-78); ALBUMIN 1.8 g/dL (3.4-5.0); ALKALINE PHOSPHATASE 62 U/L (45-117); ANION GAP 12 mmol/L (5-15); BILIRUBIN,TOTAL 0.6 mg/dL (0.2-1.0); CALCIUM 7.1 mg/dL (8.5-10.1); CREATININE 1.04 mg/dL (0.55-1.02); TOTAL PROTEIN 5.2 g/dL (6.4-8.2)
[2018-07-08 06:22] LABS: BASOPHILS # (AUTO) 0.01 x10^3/uL (0-0.1); BASOPHILS % (AUTO) 0 % (0-1); EOSINOPHILS # (AUTO) 0.08 x10^3/uL (0-0.4); EOSINOPHILS % (AUTO) 1 % (1-7); LYMPHOCYTES # (AUTO) 0.52 x10^3/uL (1-3.4); LYMPHOCYTES % (AUTO) 8 % (22-44); MD SCAN; MONOCYTES # (AUTO) 0.84 x10^3/uL (0.2-0.8); MONOCYTES % (AUTO) 13 % (2-9); NEUTROPHILS # (AUTO) 5.26 x10^3/uL (1.8-6.8); NEUTROPHILS % (AUTO) 78 % (42-75)
[2018-07-08] MEDS: CEFTRIAXONE PMX 1GM/50ML 50 ML IV SCH (07:12)
[2018-07-08] MEDS: PANTOPROZOLE 40MG TABLET PO SCH ×2 (07:48→19:36)
[2018-07-08] MEDS: FERROUS SULFATE 325 MG TABLET PO SCH ×3 (07:48→19:36)
[2018-07-08] MEDS: LIDODERM 5% PATCH TD SCH ×2 (07:58→21:24)
[2018-07-08] MEDS ORDERED: ACETAMINOPHEN 325 MG TABLET PO ONE (09:30)
[2018-07-09 02:07] VITALS: BP 165/87
[2018-07-09 02:35] VITALS: BP 164/83
[2018-07-09] MEDS: ACETAMINOPHEN 325 MG TABLET PO PRN (02:47)
[2018-07-09] MEDS: METOPROLOL TARTRATE 25 MG TABLET PO SCH ×3 (03:10→17:47)
[2018-07-09 03:28] VITALS: BP 131/65
[2018-07-09 05:34] LABS: MEAN CORPUSCULAR HEMOGLOBIN 30.1 pg (27.0-34.8); MEAN CORPUSCULAR HGB CONC 35.2 g/dL (32.4-35.8); MEAN CORPUSCULAR VOLUME 85.6 fL (80-100); MEAN PLATELET VOLUME 9.6 fL (7.4-10.4); PLATELET COUNT 64 x10^3/uL (130-400); RED BLOOD COUNT 3.09 x10^6/uL (3.82-5.3); RED CELL DISTRIBUTION WIDTH 14.1 % (9.6-15.2)
[2018-07-09 05:42] LABS: ANION GAP 13 mmol/L (5-15); CALCIUM 7.1 mg/dL (8.5-10.1); CHLORIDE 103 mmol/L (98-107)
[2018-07-09 05:46] LABS: ALANINE AMINOTRANSFERASE 14 U/L (12-78); ALKALINE PHOSPHATASE 63 U/L (45-117); BILIRUBIN,TOTAL 0.6 mg/dL (0.2-1.0); CREATININE 0.92 mg/dL (0.55-1.02); TOTAL PROTEIN 5.7 g/dL (6.4-8.2)
[2018-07-09 06:10] LABS: BASOPHILS # (AUTO) 0.02 x10^3/uL (0-0.1); BASOPHILS % (AUTO) 0 % (0-1); EOSINOPHILS # (AUTO) 0.03 x10^3/uL (0-0.4); EOSINOPHILS % (AUTO) 0 % (1-7); LYMPHOCYTES # (AUTO) 0.39 x10^3/uL (1-3.4); LYMPHOCYTES % (AUTO) 4 % (22-44); MD SCAN; MONOCYTES # (AUTO) 0.89 x10^3/uL (0.2-0.8); MONOCYTES % (AUTO) 9 % (2-9); NEUTROPHILS # (AUTO) 8.92 x10^3/uL (1.8-6.8); NEUTROPHILS % (AUTO) 87 % (42-75)
[2018-07-09] MEDS: CEFTRIAXONE PMX 1GM/50ML 50 ML IV SCH (06:25)
[2018-07-09 06:44] VITALS: BP 106/61
[2018-07-09] MEDS ORDERED: CEFTRIAXONE PMX 1GM/50ML 50 ML IV ONE (09:00)
[2018-07-09] MEDS: LIDODERM 5% PATCH TD SCH ×2 (09:00→20:55)
[2018-07-09] MEDS ORDERED: MAGNESIUM SULFATE PMX 2GM/50ML 50 ML IV ONE (09:30)
[2018-07-09] MEDS ORDERED: POTASSIUM CHLORIDE 20 MEQ TAB.ER.PRT PO ONE ×2 (09:30→13:00)
[2018-07-09] MEDS: PANTOPROZOLE 40MG TABLET PO SCH ×2 (09:36→17:47)
[2018-07-09] MEDS: FERROUS SULFATE 325 MG TABLET PO SCH ×3 (09:37→17:45)
[2018-07-09 12:44] VITALS: BP 126/77
[2018-07-09 19:40] VITALS: BP 146/76
[2018-07-10 01:56] VITALS: BP 133/76
[2018-07-10 06:01] LABS: MEAN CORPUSCULAR HEMOGLOBIN 30.3 pg (27.0-34.8); MEAN CORPUSCULAR HGB CONC 35.1 g/dL (32.4-35.8); MEAN CORPUSCULAR VOLUME 86.1 fL (80-100); RED BLOOD COUNT 3.25 x10^6/uL (3.82-5.3); RED CELL DISTRIBUTION WIDTH 14.4 % (9.6-15.2)
[2018-07-10 06:10] LABS: ANION GAP 11 mmol/L (5-15); CALCIUM 7.4 mg/dL (8.5-10.1); CHLORIDE 103 mmol/L (98-107); CREATININE 0.84 mg/dL (0.55-1.02)
[2018-07-10] MEDS: METOPROLOL TARTRATE 25 MG TABLET PO SCH ×2 (06:18→17:49)
[2018-07-10 06:25] LABS: BASOPHILS # (AUTO) 0.03 x10^3/uL (0-0.1); BASOPHILS % (AUTO) 0 % (0-1); EOSINOPHILS # (AUTO) 0.06 x10^3/uL (0-0.4); EOSINOPHILS % (AUTO) 1 % (1-7); LYMPHOCYTES # (AUTO) 0.58 x10^3/uL (1-3.4); LYMPHOCYTES % (AUTO) 7 % (22-44); MD SCAN; MEAN PLATELET VOLUME 9.6 fL (7.4-10.4); MONOCYTES # (AUTO) 0.95 x10^3/uL (0.2-0.8); MONOCYTES % (AUTO) 11 % (2-9); NEUTROPHILS # (AUTO) 7.06 x10^3/uL (1.8-6.8); NEUTROPHILS % (AUTO) 81 % (42-75); PLATELET COUNT 84 x10^3/uL (130-400)
[2018-07-10 06:44] VITALS: BP 112/74
[2018-07-10] MEDS: LIDODERM 5% PATCH TD SCH ×2 (09:00→21:28)
[2018-07-10] MEDS: FERROUS SULFATE 325 MG TABLET PO SCH ×3 (09:05→17:48)
[2018-07-10] MEDS: PANTOPROZOLE 40MG TABLET PO SCH ×2 (09:05→17:48)
[2018-07-10] MEDS: LACTOBACILLUS 1GM/ PACKET PO SCH ×3 (09:06→21:27)
[2018-07-10] MEDS: CEFTRIAXONE PMX 2GM/50ML 50 ML IV SCH (10:10)
[2018-07-10] MEDS ORDERED: POTASSIUM CHLORIDE 20 MEQ TAB.ER.PRT PO ONE (10:30)
[2018-07-10] MEDS ORDERED: ACID1GRA3 PO (11:28)
[2018-07-10] MEDS ORDERED: METO25TA35 PO (11:28)
[2018-07-10] MEDS ORDERED: CEFT2FRO2 IV (11:28)
[2018-07-10] MEDS ORDERED: ONDA4TAB10 PO (11:28)
[2018-07-10 12:43] VITALS: BP 163/88
[2018-07-10] MEDS: ACETAMINOPHEN 325 MG TABLET PO PRN (13:02)
[2018-07-10] MEDS: PIPERACILLIN/TAZO/PMX 3.375GM 50 ML IV SCH ×2 (14:08→21:28)
[2018-07-10 18:50] VITALS: BP 107/68
[2018-07-11 02:31] VITALS: BP 128/75
[2018-07-11 05:33] LABS: ANION GAP 12 mmol/L (5-15); CALCIUM 7.6 mg/dL (8.5-10.1); CHLORIDE 102 mmol/L (98-107)
[2018-07-11 05:37] LABS: ALANINE AMINOTRANSFERASE 9 U/L (12-78); ALKALINE PHOSPHATASE 64 U/L (45-117); BILIRUBIN,TOTAL 0.5 mg/dL (0.2-1.0); CREATININE 0.95 mg/dL (0.55-1.02)
[2018-07-11 05:40] LABS: MEAN CORPUSCULAR HEMOGLOBIN 29.7 pg (27.0-34.8); MEAN CORPUSCULAR HGB CONC 34.3 g/dL (32.4-35.8); MEAN CORPUSCULAR VOLUME 86.6 fL (80-100); MEAN PLATELET VOLUME 9.5 fL (7.4-10.4); PLATELET COUNT 92 x10^3/uL (130-400); RED BLOOD COUNT 3.16 x10^6/uL (3.82-5.3); RED CELL DISTRIBUTION WIDTH 14.1 % (9.6-15.2)
[2018-07-11] MEDS: PIPERACILLIN/TAZO/PMX 3.375GM 50 ML IV SCH (06:13)
[2018-07-11] MEDS: METOPROLOL TARTRATE 25 MG TABLET PO SCH (06:13)
[2018-07-11 06:15] LABS: BASOPHILS # (AUTO) 0.01 x10^3/uL (0-0.1); BASOPHILS % (AUTO) 0 % (0-1); EOSINOPHILS # (AUTO) 0.09 x10^3/uL (0-0.4); EOSINOPHILS % (AUTO) 1 % (1-7); LYMPHOCYTES # (AUTO) 0.55 x10^3/uL (1-3.4); LYMPHOCYTES % (AUTO) 6 % (22-44); MD SCAN; MONOCYTES # (AUTO) 0.95 x10^3/uL (0.2-0.8); MONOCYTES % (AUTO) 11 % (2-9); NEUTROPHILS # (AUTO) 7.49 x10^3/uL (1.8-6.8); NEUTROPHILS % (AUTO) 82 % (42-75)
[2018-07-11 07:20] VITALS: BP 116/67
[2018-07-11] MEDS: PANTOPROZOLE 40MG TABLET PO SCH (08:01)
[2018-07-11] MEDS: FERROUS SULFATE 325 MG TABLET PO SCH ×2 (08:01→12:33)
[2018-07-11] MEDS: LIDODERM 5% PATCH TD SCH (09:00)
[2018-07-11] MEDS: LACTOBACILLUS 1GM/ PACKET PO SCH (09:00)
[2018-07-11] MEDS: CEFTRIAXONE PMX 2GM/50ML 50 ML IV SCH (10:25)
[2018-07-11] MEDS ORDERED: PIPE3.375 IV (10:51)
[2018-07-11 14:21] VITALS: BP 117/72
== END 2018-07-11 15:00 | DRG 871 ==
LOC: ED 20:42 → EDIP 21:22 → CCU 22:50 → 4NOR 07-06 16:20
PROVIDERS: ADMIT Internal Medicine; ATTEND Internal Medicine
PROC: 0T9B70Z Drainage of Bladder with Drainage Device, Via Natural or Artificial Opening (ICD-10-PCS; 2018-07-04)
PROC: 02HV33Z Insertion of Infusion Device into Superior Vena Cava, Percutaneous Approach (ICD-10-PCS; 2018-07-04)
PROC: B548ZZA Ultrasonography of Superior Vena Cava, Guidance (ICD-10-PCS; 2018-07-04)
PROC: 30233R1 Transfusion of Nonautologous Platelets into Peripheral Vein, Percutaneous Approach (ICD-10-PCS; principal; 2018-07-05)
PROC: 30233N1 Transfusion of Nonautologous Red Blood Cells into Peripheral Vein, Percutaneous Approach (ICD-10-PCS; 2018-07-05)
DX: A41.9 Sepsis, unspecified organism (principal); R65.21 Severe sepsis with septic shock; E43 Unspecified severe protein-calorie malnutrition; R53.2 Functional quadriplegia; N39.0 Urinary tract infection, site not specified; D62 Acute posthemorrhagic anemia; D69.3 Immune thrombocytopenic purpura; N17.9 Acute kidney failure, unspecified; Z66 Do not resuscitate; B96.20 Unspecified Escherichia coli [E. coli] as the cause of diseases classified elsewhere; D46.9 Myelodysplastic syndrome, unspecified; E83.42 Hypomagnesemia; E86.9 Volume depletion, unspecified; E87.6 Hypokalemia; F43.20 Adjustment disorder, unspecified; G62.9 Polyneuropathy, unspecified; I10 Essential (primary) hypertension; I25.10 Atherosclerotic heart disease of native coronary artery without angina pectoris; I27.20 Pulmonary hypertension, unspecified; I35.0 Nonrheumatic aortic (valve) stenosis; Z74.01 Bed confinement status; Z87.19 Personal history of other diseases of the digestive system; Z87.11 Personal history of peptic ulcer disease; Z68.21 Body mass index [BMI] 21.0-21.9, adult; Z23 Encounter for immunization; Z87.891 Personal history of nicotine dependence
CPT/HCPCS: 0399T; 36415; 71045; 71275; 76770; 80048; 80053; 80061; 81001; 82272; 83036; 83605; 83735; 84100; 84132; 84145; 84439; 84443; 84484; 85014; 85018; 85025; 85384; 85610; 86850; 86900; 86923; 87040; 87077; 87081; 87086; 87186; 87324; 90656; 93005; 93306; 96361; 96365; 96366; 96367; 96368; 99291; G0378; J0696; J2543; J3370; J3430; J3480; Q9967; C9113; J3475; J7030; J7040; J7050; P9016; P9035

== ENCOUNTER 2018-07-24 09:51 | Inpatient (IN) | payer MEDICARE, OTHER ==
[~2018-07-24] VITALS: Ht 160 cm; Wt 52.0 kg
[~2018-07-24 09:51] MED LIST changes: +ACID1GRA3 PO; +CEFT2FRO2 IV; +LIDO700A20 TD; +METO25TA35 PO; +OMEP20TA62 PO; +ONDA4TAB10 PO; +PIPE3.375 IV
[2018-07-24] MEDS ORDERED: SODIUM CHLORIDE FLUSH 10ML SYR IVF ONE (10:00)
[2018-07-24] MEDS ORDERED: SODIUM CHLORIDE 0.9% 1,000ML IVBOLUS ONE (10:30)
[2018-07-24 10:49] LABS: MEAN CORPUSCULAR HEMOGLOBIN 27.7 pg (27.0-34.8); MEAN CORPUSCULAR HGB CONC 33.5 g/dL (32.4-35.8); MEAN CORPUSCULAR VOLUME 82.6 fL (80-100); MEAN PLATELET VOLUME 10.1 fL (7.4-10.4); PLATELET COUNT 107 x10^3/uL (130-400); RED BLOOD COUNT 3.07 x10^6/uL (3.82-5.3); RED CELL DISTRIBUTION WIDTH 15.2 % (9.6-15.2)
[2018-07-24 11:01] LABS: ALANINE AMINOTRANSFERASE 16 U/L (12-78); ALBUMIN 2.3 g/dL (3.4-5.0); ANION GAP 15 mmol/L (5-15); CALCIUM 7.6 mg/dL (8.5-10.1); CHLORIDE 106 mmol/L (98-107); CREATININE 1.21 mg/dL (0.55-1.02)
[2018-07-24 11:05] LABS: ALKALINE PHOSPHATASE 107 U/L (45-117); BILIRUBIN,TOTAL 0.7 mg/dL (0.2-1.0); TOTAL PROTEIN 6.6 g/dL (6.4-8.2); TROPONIN I 0.057 ng/mL (0.000-0.045)
[2018-07-24 11:07] LABS: MD YES
[2018-07-24 11:10] LABS: LYMPH#(MANUAL) 0.23 x10^3/uL (1-3.4); LYMPHS% (MANUAL) 2 % (22-44); MONOS#(MANUAL) 0.11 x10^3/uL (0.3-2.7); MONOS% (MANUAL) 1 % (2-9)
[2018-07-24 11:11] LABS: <PLATELET ESTIMATE> DECREASED; BAND#(MANUAL) 1.25 x10^3/uL; BANDS%(MANUAL) 11 % (0-7); POLYCHROMASIA 1+; SEGS% (MANUAL) 86 % (42-75)
[2018-07-24 11:12] LABS: LARGE PLATELETS 1+
[2018-07-24 11:22] LABS: MICROSCOPIC INDICATED
[2018-07-24 11:23] LABS: CULTURE INDICATED? YES
[2018-07-24] MEDS ORDERED: CYAN500L4 PO (11:26)
[2018-07-24] MEDS ORDERED: MELA1TAB7 PO (11:26)
[2018-07-24] MEDS ORDERED: CEFTRIAXONE PMX 1GM/50ML 50 ML IV ONE (11:30)
[2018-07-24] MEDS ORDERED: CEFTRIAXONE PMX 1GM/50ML 50 ML ONE (11:50)
[2018-07-24] MEDS ORDERED: POLYETHYLENE GLYCOL 17 GM PACKET PO PRN (12:00)
[2018-07-24] MEDS ORDERED: OMEPRAZOLE 20 MG CAPSULE.DR PO PRN (12:00)
[2018-07-24] MEDS ORDERED: SODIUM CHLORIDE FLUSH 10ML SYR IVF PRN (12:00)
[2018-07-24 13:25] VITALS: BP 97/50
[2018-07-24] MEDS ORDERED: GABAPENTIN 100 MG CAPSULE PO PRN (13:30)
[2018-07-24] MEDS ORDERED: MELATONIN 5 MG TABLET PO PRN (13:30)
[2018-07-24 13:45] VITALS: BP 97/50
[2018-07-24] MEDS: SODIUM CHLORIDE 0.9% 1,000 ML IV SCH (14:26)
[2018-07-24] MEDS: FERROUS SULFATE 325 MG TABLET PO SCH ×2 (14:26→17:10)
[2018-07-24 19:56] LABS: ANION GAP 11 mmol/L (5-15); CALCIUM 7.3 mg/dL (8.5-10.1); CHLORIDE 107 mmol/L (98-107); CREATININE 0.93 mg/dL (0.55-1.02)
[2018-07-24 20:39] VITALS: BP 168/80
[2018-07-24] MEDS: ACETAMINOPHEN 325 MG TABLET PO PRN (22:07)
[2018-07-24 22:16] VITALS: BP 116/65
[2018-07-25] VITALS (12 sets, daily range): BP systolic 104–193; BP diastolic 59–84
[2018-07-25] MEDS ORDERED: CEFTRIAXONE PMX 1GM/50ML 50 ML IV SCH
[2018-07-25] MEDS: SODIUM CHLORIDE 0.9% 1,000 ML IV SCH (01:15)
[2018-07-25 05:30] LABS: ALBUMIN 1.9 g/dL (3.4-5.0); ANION GAP 12 mmol/L (5-15); CALCIUM 7.2 mg/dL (8.5-10.1); CHLORIDE 110 mmol/L (98-107)
[2018-07-25 05:34] LABS: ALANINE AMINOTRANSFERASE 11 U/L (12-78); ALKALINE PHOSPHATASE 76 U/L (45-117); BILIRUBIN,TOTAL 0.4 mg/dL (0.2-1.0); CREATININE 0.88 mg/dL (0.55-1.02); MEAN CORPUSCULAR HGB CONC 33.9 g/dL (32.4-35.8); MEAN CORPUSCULAR VOLUME 82.7 fL (80-100); RED BLOOD COUNT 2.53 x10^6/uL (3.82-5.3); RED CELL DISTRIBUTION WIDTH 15.1 % (9.6-15.2); TOTAL PROTEIN 5.6 g/dL (6.4-8.2)
[2018-07-25 05:53] LABS: MEAN PLATELET VOLUME 9.6 fL (7.4-10.4); PLATELET COUNT 59 x10^3/uL (130-400)
[2018-07-25 05:56] LABS: BASOPHILS # (AUTO) 0.01 x10^3/uL (0-0.1); BASOPHILS % (AUTO) 0 % (0-1); EOSINOPHILS # (AUTO) 0.03 x10^3/uL (0-0.4); EOSINOPHILS % (AUTO) 0 % (1-7); LYMPHOCYTES # (AUTO) 0.94 x10^3/uL (1-3.4); LYMPHOCYTES % (AUTO) 8 % (22-44); MD SCAN; MONOCYTES % (AUTO) 6 % (2-9); NEUTROPHILS # (AUTO) 10.55 x10^3/uL (1.8-6.8); NEUTROPHILS % (AUTO) 86 % (42-75)
[2018-07-25] MEDS ORDERED: MAGNESIUM SULFATE PMX 2GM/50ML 50 ML IV ONE (06:30)
[2018-07-25 07:26] LABS: D-DIMER (DIC) 5.65 ug/mlFEU (0.00-0.52); PROTIME 12.7 Seconds (9.6-11.5)
[2018-07-25] MEDS: FERROUS SULFATE 325 MG TABLET PO SCH ×3 (08:31→16:45)
[2018-07-25] MEDS: POTASSIUM CHLORIDE 20 MEQ TAB.ER.PRT PO SCH ×2 (08:31→16:44)
[2018-07-25] MEDS: CYANOCOBALAMIN 1,000 MCG TABLET PO SCH (08:31)
[2018-07-25] MEDS: CEFTRIAXONE PMX 2GM/50ML 50 ML IV SCH ×2 (08:32→20:08)
[2018-07-25] MEDS: SODIUM ACETATE 150 MEQ in DEXTROSE 5% 1,000 ML IV SCH (09:48)
[2018-07-25 10:24] LABS: % IRON SATURATION 6 % (20-55); IRON LEVEL 13 mcg/dL (50-170); TOTAL IRON BINDING CAPACITY 234 mcg/dL (250-450)
[2018-07-25] MEDS ORDERED: MORPHINE SULFATE 4 MG/ML, 1ML IVPush ONE (17:00)
[2018-07-25] MEDS ORDERED: FUROSEMIDE 40 MG/4 ML IV ONE (17:00)
[2018-07-25] MEDS ORDERED: hydrALAzine 20 MG/ML, 1ML IV PRN (17:00)
[2018-07-25] MEDS ORDERED: MORPHINE SULFATE 4 MG/ML, 1ML ONE (17:05)
[2018-07-25] MEDS ORDERED: FUROSEMIDE 40 MG/4 ML ONE (17:05)
[2018-07-25] MEDS: ACETAMINOPHEN 325 MG TABLET PO PRN (17:40)
[2018-07-26 01:28] VITALS: BP 108/61
[2018-07-26] MEDS: SODIUM ACETATE 150 MEQ in DEXTROSE 5% 1,000 ML IV SCH ×2 (01:46→12:56)
[2018-07-26 05:51] LABS: MEAN CORPUSCULAR HEMOGLOBIN 28.3 pg (27.0-34.8); MEAN CORPUSCULAR HGB CONC 34.2 g/dL (32.4-35.8); MEAN CORPUSCULAR VOLUME 82.6 fL (80-100); MEAN PLATELET VOLUME 10.5 fL (7.4-10.4); PLATELET COUNT 80 x10^3/uL (130-400); RED CELL DISTRIBUTION WIDTH 16.4 % (9.6-15.2)
[2018-07-26 05:58] LABS: ALBUMIN 1.9 g/dL (3.4-5.0); ANION GAP 11 mmol/L (5-15); CALCIUM 7.3 mg/dL (8.5-10.1); CHLORIDE 103 mmol/L (98-107)
[2018-07-26 06:05] LABS: ALANINE AMINOTRANSFERASE 8 U/L (12-78); ALKALINE PHOSPHATASE 93 U/L (45-117); BILIRUBIN,TOTAL 0.7 mg/dL (0.2-1.0); CREATININE 0.96 mg/dL (0.55-1.02); PREALBUMIN 7.9 mg/dL (20.0-40.0); TOTAL PROTEIN 5.9 g/dL (6.4-8.2)
[2018-07-26 06:06] LABS: BASOPHILS # (AUTO) 0.03 x10^3/uL (0-0.1); BASOPHILS % (AUTO) 0 % (0-1); EOSINOPHILS # (AUTO) 0.13 x10^3/uL (0-0.4); EOSINOPHILS % (AUTO) 1 % (1-7); LYMPHOCYTES # (AUTO) 1.13 x10^3/uL (1-3.4); LYMPHOCYTES % (AUTO) 7 % (22-44); MD SCAN; MONOCYTES % (AUTO) 5 % (2-9); NEUTROPHILS # (AUTO) 14.82 x10^3/uL (1.8-6.8); NEUTROPHILS % (AUTO) 87 % (42-75)
[2018-07-26 07:18] VITALS: BP 109/69
[2018-07-26] MEDS: IRON SUCROSE COMPLEX 100MG/5ML IV SCH (08:03)
[2018-07-26] MEDS: FERROUS SULFATE 325 MG TABLET PO SCH ×3 (08:03→17:43)
[2018-07-26] MEDS: CEFTRIAXONE PMX 2GM/50ML 50 ML IV SCH ×2 (08:03→20:13)
[2018-07-26] MEDS: CYANOCOBALAMIN 1,000 MCG TABLET PO SCH (08:04)
[2018-07-26] MEDS ORDERED: MAGNESIUM SULFATE PMX 2GM/50ML 50 ML IV ONE (09:00)
[2018-07-26 13:07] VITALS: BP 126/75
[2018-07-26] MEDS: POTASSIUM CHLORIDE 20 MEQ TAB.ER.PRT PO SCH (17:43)
[2018-07-26 18:49] VITALS: BP 70/75
[2018-07-27 01:41] VITALS: BP 123/62
[2018-07-27 05:19] LABS: ALBUMIN 1.9 g/dL (3.4-5.0); ANION GAP 11 mmol/L (5-15); CALCIUM 7.5 mg/dL (8.5-10.1); CHLORIDE 97 mmol/L (98-107)
[2018-07-27 05:20] LABS: CREATININE 0.87 mg/dL (0.55-1.02)
[2018-07-27 05:24] LABS: MEAN CORPUSCULAR HEMOGLOBIN 28.1 pg (27.0-34.8); MEAN CORPUSCULAR HGB CONC 33.6 g/dL (32.4-35.8); MEAN CORPUSCULAR VOLUME 83.7 fL (80-100); MEAN PLATELET VOLUME 10.9 fL (7.4-10.4); PLATELET COUNT 91 x10^3/uL (130-400); RED BLOOD COUNT 4.12 x10^6/uL (3.82-5.3); RED CELL DISTRIBUTION WIDTH 16.1 % (9.6-15.2)
[2018-07-27 06:01] LABS: BASOPHILS # (AUTO) 0.05 x10^3/uL (0-0.1); BASOPHILS % (AUTO) 0 % (0-1); EOSINOPHILS # (AUTO) 0.08 x10^3/uL (0-0.4); EOSINOPHILS % (AUTO) 1 % (1-7); LYMPHOCYTES # (AUTO) 1.19 x10^3/uL (1-3.4); LYMPHOCYTES % (AUTO) 7 % (22-44); MD SCAN; MONOCYTES # (AUTO) 0.97 x10^3/uL (0.2-0.8); MONOCYTES % (AUTO) 6 % (2-9); NEUTROPHILS # (AUTO) 15.27 x10^3/uL (1.8-6.8); NEUTROPHILS % (AUTO) 87 % (42-75)
[2018-07-27 07:25] VITALS: BP 117/70
[2018-07-27] MEDS: FERROUS SULFATE 325 MG TABLET PO SCH ×3 (09:11→16:43)
[2018-07-27] MEDS: CYANOCOBALAMIN 1,000 MCG TABLET PO SCH (09:11)
[2018-07-27] MEDS: IRON SUCROSE COMPLEX 100MG/5ML IV SCH (09:12)
[2018-07-27] MEDS: POTASSIUM CHLORIDE 20 MEQ TAB.ER.PRT PO SCH ×2 (09:12→16:43)
[2018-07-27] MEDS: CEFTRIAXONE PMX 2GM/50ML 50 ML IV SCH (10:36)
[2018-07-27 10:57] LABS: CLOSTRIDIUM DIFFICILE ANTIGEN NEGATIVE; CLOSTRIDIUM DIFFICILE TOXIN NEGATIVE (Negative)
[2018-07-27 11:13] LABS: OCCULT BLOOD NEGATIVE (NEGATIVE)
[2018-07-27 12:37] VITALS: BP 126/72
[2018-07-27] MEDS ORDERED: ONDANSETRON 2MG/ML, 2ML ONE (17:27)
[2018-07-27] MEDS: ONDANSETRON 2MG/ML, 2ML IVPush PRN (17:29)
[2018-07-27] MEDS ORDERED: ONDANSETRON ODT 4 MG PO PRN (17:30)
[2018-07-27 18:56] VITALS: BP 118/67
[2018-07-28 02:14] VITALS: BP 111/45
[2018-07-28 05:39] LABS: MEAN CORPUSCULAR HEMOGLOBIN 28.2 pg (27.0-34.8); MEAN CORPUSCULAR HGB CONC 34.1 g/dL (32.4-35.8); MEAN CORPUSCULAR VOLUME 82.8 fL (80-100); RED BLOOD COUNT 3.77 x10^6/uL (3.82-5.3); RED CELL DISTRIBUTION WIDTH 16.9 % (9.6-15.2)
[2018-07-28 05:47] LABS: ALBUMIN 1.8 g/dL (3.4-5.0); ANION GAP 9 mmol/L (5-15); CALCIUM 7.5 mg/dL (8.5-10.1); CHLORIDE 99 mmol/L (98-107); CREATININE 0.95 mg/dL (0.55-1.02)
[2018-07-28 05:58] LABS: BASOPHILS # (AUTO) 0.05 x10^3/uL (0-0.1); BASOPHILS % (AUTO) 0 % (0-1); EOSINOPHILS # (AUTO) 0.17 x10^3/uL (0-0.4); EOSINOPHILS % (AUTO) 1 % (1-7); LYMPHOCYTES # (AUTO) 1.27 x10^3/uL (1-3.4); LYMPHOCYTES % (AUTO) 8 % (22-44); MD SCAN; MONOCYTES # (AUTO) 0.75 x10^3/uL (0.2-0.8); MONOCYTES % (AUTO) 5 % (2-9); NEUTROPHILS # (AUTO) 13.53 x10^3/uL (1.8-6.8); NEUTROPHILS % (AUTO) 86 % (42-75); PLATELET COUNT 74 x10^3/uL (130-400)
[2018-07-28 07:31] VITALS: BP 121/73
[2018-07-28] MEDS: POTASSIUM CHLORIDE 20 MEQ TAB.ER.PRT PO SCH ×2 (08:00→17:00)
[2018-07-28] MEDS: FERROUS SULFATE 325 MG TABLET PO SCH ×3 (08:00→17:00)
[2018-07-28] MEDS ORDERED: CEFTRIAXONE PMX 2GM/50ML 50 ML IV SCH (08:30)
[2018-07-28] MEDS ORDERED: OMNIPAQUE 350 MG/ML, 100ML BOTTLE ONE (08:51)
[2018-07-28] MEDS: CYANOCOBALAMIN 1,000 MCG TABLET PO SCH (09:00)
[2018-07-28] MEDS: IRON SUCROSE COMPLEX 100MG/5ML IV SCH (09:11)
[2018-07-28] MEDS: ONDANSETRON 2MG/ML, 2ML IVPush PRN (09:12)
[2018-07-28] MEDS: CEFTRIAXONE PMX 2GM/50ML 50 ML IV SCH (09:12)
[2018-07-28] MEDS ORDERED: ACETAMINOPHEN 650 MG SUPP PR PRN (10:00)
[2018-07-28] MEDS ORDERED: HEPARIN 25,000 UNITS/500ML PMX 500 ML IV PRN (10:00)
[2018-07-28] MEDS ORDERED: ENOXAPARIN 40 MG/0.4 ML SQ SCH (10:00)
[2018-07-28] MEDS: SCOPOLAMINE PATCH, 1.5MG PATCH.TD72 TD SCH (10:25)
[2018-07-28 12:53] VITALS: BP 108/62
[2018-07-28] MEDS ORDERED: HEPARIN 5,000 UNITS/ML, 1ML IV ONE (18:30)
[2018-07-28] MEDS: HEPARIN 25,000 UNITS/500ML PMX 500 ML IV PRN (19:00)
[2018-07-28 19:23] VITALS: BP 101/63
[2018-07-28 21:55] LABS: OCCULT BLOOD NEGATIVE (NEGATIVE)
[2018-07-29 01:13] LABS: MEAN CORPUSCULAR HEMOGLOBIN 28.4 pg (27.0-34.8); MEAN CORPUSCULAR HGB CONC 33.6 g/dL (32.4-35.8); MEAN CORPUSCULAR VOLUME 84.4 fL (80-100); RED BLOOD COUNT 3.76 x10^6/uL (3.82-5.3); RED CELL DISTRIBUTION WIDTH 16.7 % (9.6-15.2)
[2018-07-29 01:24] LABS: ALANINE AMINOTRANSFERASE 9 U/L (12-78); ALBUMIN 1.8 g/dL (3.4-5.0); ANION GAP 10 mmol/L (5-15); CALCIUM 7.4 mg/dL (8.5-10.1); CHLORIDE 97 mmol/L (98-107); CREATININE 1.09 mg/dL (0.55-1.02)
[2018-07-29 01:26] LABS: ALKALINE PHOSPHATASE 81 U/L (45-117); BILIRUBIN,TOTAL 0.4 mg/dL (0.2-1.0); TOTAL PROTEIN 5.5 g/dL (6.4-8.2)
[2018-07-29 01:28] VITALS: BP 119/68
[2018-07-29 01:30] LABS: MD SCAN
[2018-07-29 01:31] LABS: BASOPHILS # (AUTO) 0.01 x10^3/uL (0-0.1); BASOPHILS % (AUTO) 0 % (0-1); EOSINOPHILS # (AUTO) 0.21 x10^3/uL (0-0.4); EOSINOPHILS % (AUTO) 1 % (1-7); LYMPHOCYTES # (AUTO) 1.19 x10^3/uL (1-3.4); LYMPHOCYTES % (AUTO) 8 % (22-44); MEAN PLATELET VOLUME 10.2 fL (7.4-10.4); MONOCYTES # (AUTO) 0.68 x10^3/uL (0.2-0.8); MONOCYTES % (AUTO) 5 % (2-9); NEUTROPHILS # (AUTO) 12.93 x10^3/uL (1.8-6.8); NEUTROPHILS % (AUTO) 86 % (42-75); PLATELET COUNT 78 x10^3/uL (130-400)
[2018-07-29] MEDS: HEPARIN 5,000 UNITS/ML, 1ML IV PRN ×4 (01:37→22:30)
[2018-07-29 06:59] VITALS: BP 103/67
[2018-07-29] MEDS ORDERED: MAGNESIUM SULFATE PMX 2GM/50ML 50 ML IV ONE (07:30)
[2018-07-29] MEDS: POTASSIUM CHLORIDE 20 MEQ TAB.ER.PRT PO SCH (08:00)
[2018-07-29] MEDS: FERROUS SULFATE 325 MG TABLET PO SCH ×3 (08:00→17:00)
[2018-07-29] MEDS: CYANOCOBALAMIN 1,000 MCG TABLET PO SCH (09:00)
[2018-07-29] MEDS: POTASSIUM CHLORIDE 10 MEQ in D5%-0.45% NACL 1,000 ML IV SCH (09:49)
[2018-07-29] MEDS: CEFTRIAXONE PMX 2GM/50ML 50 ML IV SCH (09:49)
[2018-07-29] MEDS: IRON SUCROSE COMPLEX 100MG/5ML IV SCH (09:50)
[2018-07-29 12:14] VITALS: BP 109/66
[2018-07-29 20:22] VITALS: BP 134/72
[2018-07-29] MEDS: ACETAMINOPHEN 325 MG TABLET PO PRN (20:47)
[2018-07-29 21:29] LABS: OCCULT BLOOD NEGATIVE (NEGATIVE)
[2018-07-29 21:48] VITALS: BP 112/48
[2018-07-30] VITALS (7 sets, daily range): BP systolic 92–130; BP diastolic 43–69
[2018-07-30] MEDS: POTASSIUM CHLORIDE 10 MEQ in D5%-0.45% NACL 1,000 ML IV SCH (01:43)
[2018-07-30] MEDS: HEPARIN 25,000 UNITS/500ML PMX 500 ML IV PRN (02:09)
[2018-07-30 03:18] LABS: ALANINE AMINOTRANSFERASE 8 U/L (12-78); ALBUMIN 1.9 g/dL (3.4-5.0); ANION GAP 10 mmol/L (5-15); CALCIUM 7.2 mg/dL (8.5-10.1); CHLORIDE 95 mmol/L (98-107); CREATININE 1.24 mg/dL (0.55-1.02)
[2018-07-30 03:20] LABS: ALKALINE PHOSPHATASE 81 U/L (45-117); BILIRUBIN,TOTAL 0.3 mg/dL (0.2-1.0); TOTAL PROTEIN 5.6 g/dL (6.4-8.2)
[2018-07-30 03:34] LABS: MEAN CORPUSCULAR HEMOGLOBIN 28.5 pg (27.0-34.8); MEAN CORPUSCULAR HGB CONC 33.7 g/dL (32.4-35.8); MEAN CORPUSCULAR VOLUME 84.6 fL (80-100); MEAN PLATELET VOLUME 11.1 fL (7.4-10.4); PLATELET COUNT 100 x10^3/uL (130-400); RED BLOOD COUNT 3.61 x10^6/uL (3.82-5.3); RED CELL DISTRIBUTION WIDTH 17.1 % (9.6-15.2)
[2018-07-30 04:24] LABS: BASOPHILS # (AUTO) 0.08 x10^3/uL (0-0.1); BASOPHILS % (AUTO) 0 % (0-1); EOSINOPHILS # (AUTO) 0.21 x10^3/uL (0-0.4); EOSINOPHILS % (AUTO) 1 % (1-7); LYMPHOCYTES % (AUTO) 6 % (22-44); MD SCAN; MONOCYTES # (AUTO) 0.92 x10^3/uL (0.2-0.8); MONOCYTES % (AUTO) 5 % (2-9); NEUTROPHILS % (AUTO) 88 % (42-75)
[2018-07-30] MEDS: HEPARIN 5,000 UNITS/ML, 1ML IV PRN ×3 (05:21→19:55)
[2018-07-30] MEDS ORDERED: MAGNESIUM SULFATE PMX 2GM/50ML 50 ML IV ONE (06:30)
[2018-07-30] MEDS ORDERED: SODIUM CHLORIDE 0.9%, 500ML IVBOLUS ONE (07:00)
[2018-07-30] MEDS ORDERED: ATROPINE SYRINGE 0.1 MG/ML, 10ML ONE (08:00)
[2018-07-30] MEDS: FERROUS SULFATE 325 MG TABLET PO SCH ×3 (08:22→17:28)
[2018-07-30] MEDS: CYANOCOBALAMIN 1,000 MCG TABLET PO SCH (08:22)
[2018-07-30] MEDS: CEFTRIAXONE PMX 2GM/50ML 50 ML IV SCH (11:26)
[2018-07-30] MEDS: ACETAMINOPHEN 325 MG TABLET PO PRN (21:58)
[2018-07-31 01:45] VITALS: BP 109/52
[2018-07-31] MEDS: HEPARIN 25,000 UNITS/500ML PMX 500 ML IV PRN (01:49)
[2018-07-31] MEDS: HEPARIN 5,000 UNITS/ML, 1ML IV PRN (03:11)
[2018-07-31 08:01] VITALS: BP 115/58
[2018-07-31 08:36] LABS: ALANINE AMINOTRANSFERASE 10 U/L (12-78); ALBUMIN 2.2 g/dL (3.4-5.0); ANION GAP 12 mmol/L (5-15); CALCIUM 7.1 mg/dL (8.5-10.1); CHLORIDE 93 mmol/L (98-107); CREATININE 1.34 mg/dL (0.55-1.02)
[2018-07-31 08:39] LABS: ALKALINE PHOSPHATASE 81 U/L (45-117); BASOPHILS # (AUTO) 0.05 x10^3/uL (0-0.1); BASOPHILS % (AUTO) 0 % (0-1); BILIRUBIN,TOTAL 0.4 mg/dL (0.2-1.0); EOSINOPHILS # (AUTO) 0.21 x10^3/uL (0-0.4); EOSINOPHILS % (AUTO) 1 % (1-7); LYMPHOCYTES # (AUTO) 1.24 x10^3/uL (1-3.4); LYMPHOCYTES % (AUTO) 8 % (22-44); MD NO; MEAN CORPUSCULAR HGB CONC 33.5 g/dL (32.4-35.8); MEAN CORPUSCULAR VOLUME 83.6 fL (80-100); MEAN PLATELET VOLUME 10.4 fL (7.4-10.4); MONOCYTES # (AUTO) 0.73 x10^3/uL (0.2-0.8); MONOCYTES % (AUTO) 5 % (2-9); NEUTROPHILS # (AUTO) 13.03 x10^3/uL (1.8-6.8); NEUTROPHILS % (AUTO) 85 % (42-75); PLATELET COUNT 116 x10^3/uL (130-400); RED BLOOD COUNT 3.93 x10^6/uL (3.82-5.3); RED CELL DISTRIBUTION WIDTH 17.1 % (9.6-15.2); TOTAL PROTEIN 6.5 g/dL (6.4-8.2)
[2018-07-31] MEDS ORDERED: SODIUM CHLORIDE 0.9% 1,000 ML IV SCH (10:00)
[2018-07-31] MEDS: CYANOCOBALAMIN 1,000 MCG TABLET PO SCH (10:01)
[2018-07-31] MEDS: FERROUS SULFATE 325 MG TABLET PO SCH ×3 (10:02→17:34)
[2018-07-31] MEDS: CEFTRIAXONE PMX 2GM/50ML 50 ML IV SCH (10:02)
[2018-07-31] MEDS: SCOPOLAMINE PATCH, 1.5MG PATCH.TD72 TD SCH (10:47)
[2018-07-31 12:25] VITALS: BP 126/70
[2018-07-31] MEDS ORDERED: CEFAZOLIN PMX 1GM/50ML 50 ML ONE (13:54)
[2018-07-31] MEDS ORDERED: LIDOCAINE/PF 1%, 30ML ONE (13:54)
[2018-07-31] MEDS ORDERED: CEFAZOLIN 1,000 MG ONE (13:54)
[2018-07-31] MEDS ORDERED: MIDAZOLAM 1 MG/ML, 2ML ONE ×2 (13:54→14:52)
[2018-07-31] MEDS ORDERED: FENTANYL PF 100 MCG/2ML ONE (13:54)
[2018-07-31] MEDS ORDERED: FUROSEMIDE 20 MG/2 ML IV ONE (16:00)
[2018-07-31] MEDS ORDERED: HOLD MEDICATION MC PRN (16:00)
[2018-07-31 18:45] VITALS: BP 132/79
[2018-07-31] MEDS: SODIUM CHLORIDE FLUSH 10ML SYR IVF SCH (20:10)
[2018-07-31] MEDS: CEFAZOLIN PMX 1GM/50ML 50 ML IVPB SCH (23:00)
[2018-08-01 00:38] VITALS: BP 146/77
[2018-08-01 05:12] LABS: MEAN CORPUSCULAR HEMOGLOBIN 28.2 pg (27.0-34.8); MEAN CORPUSCULAR HGB CONC 33.8 g/dL (32.4-35.8); MEAN CORPUSCULAR VOLUME 83.6 fL (80-100); RED BLOOD COUNT 3.31 x10^6/uL (3.82-5.3)
[2018-08-01 05:22] LABS: ALBUMIN 2.1 g/dL (3.4-5.0); ANION GAP 11 mmol/L (5-15); CALCIUM 7.3 mg/dL (8.5-10.1); CHLORIDE 97 mmol/L (98-107); CREATININE 1.01 mg/dL (0.55-1.02)
[2018-08-01 05:38] LABS: BASOPHILS # (AUTO) 0.01 x10^3/uL (0-0.1); BASOPHILS % (AUTO) 0 % (0-1); EOSINOPHILS # (AUTO) 0.05 x10^3/uL (0-0.4); EOSINOPHILS % (AUTO) 1 % (1-7); LYMPHOCYTES # (AUTO) 0.46 x10^3/uL (1-3.4); LYMPHOCYTES % (AUTO) 4 % (22-44); MD SCAN; MEAN PLATELET VOLUME 9.5 fL (7.4-10.4); MONOCYTES % (AUTO) 4 % (2-9); NEUTROPHILS # (AUTO) 10.18 x10^3/uL (1.8-6.8); NEUTROPHILS % (AUTO) 92 % (42-75); PLATELET COUNT 84 x10^3/uL (130-400)
[2018-08-01] MEDS: CEFAZOLIN PMX 1GM/50ML 50 ML IVPB SCH (06:59)
[2018-08-01 07:58] VITALS: BP 127/66
[2018-08-01] MEDS: CEFTRIAXONE PMX 2GM/50ML 50 ML IV SCH (09:34)
[2018-08-01] MEDS: FERROUS SULFATE 325 MG TABLET PO SCH ×2 (09:35→12:37)
[2018-08-01] MEDS: SODIUM CHLORIDE FLUSH 10ML SYR IVF SCH (09:35)
[2018-08-01] MEDS: CYANOCOBALAMIN 1,000 MCG TABLET PO SCH (09:35)
[2018-08-01] MEDS ORDERED: ACET325T14 PO (11:33)
[2018-08-01] MEDS ORDERED: CEFT2PIG2 IV (11:33)
[2018-08-01] MEDS ORDERED: APIX5TAB PO (11:39)
[2018-08-08] MEDS ORDERED: LACT1TAB13 PO (12:50)
== END 2018-08-01 14:45 | DRG 853 ==
LOC: ED 10:12 → SUATTDRO 11:51 → EDIP 11:51 → 4WST 12:52 → 4EST 07-26 17:24 → 4WST 07-28 17:20 → 5SO 07-30 02:48
PROVIDERS: ADMIT Hospitalist; ATTEND Hospitalist
PROC: 0T9B70Z Drainage of Bladder with Drainage Device, Via Natural or Artificial Opening (ICD-10-PCS; 2018-07-24)
PROC: 30233N1 Transfusion of Nonautologous Red Blood Cells into Peripheral Vein, Percutaneous Approach (ICD-10-PCS; 2018-07-25)
PROC: 02H63JZ Insertion of Pacemaker Lead into Right Atrium, Percutaneous Approach (ICD-10-PCS; principal; 2018-07-31)
PROC: 02HK3JZ Insertion of Pacemaker Lead into Right Ventricle, Percutaneous Approach (ICD-10-PCS; 2018-07-31)
PROC: 0JH606Z Insertion of Pacemaker, Dual Chamber into Chest Subcutaneous Tissue and Fascia, Open Approach (ICD-10-PCS; 2018-07-31)
DX: A41.9 Sepsis, unspecified organism (principal); E43 Unspecified severe protein-calorie malnutrition; I26.99 Other pulmonary embolism without acute cor pulmonale; J96.01 Acute respiratory failure with hypoxia; N17.0 Acute kidney failure with tubular necrosis; R65.21 Severe sepsis with septic shock; E87.1 Hypo-osmolality and hyponatremia; I31.3 Pericardial effusion (noninflammatory); I44.2 Atrioventricular block, complete; I50.32 Chronic diastolic (congestive) heart failure; N12 Tubulo-interstitial nephritis, not specified as acute or chronic; B96.20 Unspecified Escherichia coli [E. coli] as the cause of diseases classified elsewhere; B96.89 Other specified bacterial agents as the cause of diseases classified elsewhere; D50.9 Iron deficiency anemia, unspecified; D69.59 Other secondary thrombocytopenia; I11.0 Hypertensive heart disease with heart failure; K82.4 Cholesterolosis of gallbladder; N20.0 Calculus of kidney; Z87.891 Personal history of nicotine dependence; Z87.11 Personal history of peptic ulcer disease; D64.9 Anemia, unspecified; Z68.20 Body mass index [BMI] 20.0-20.9, adult
CPT/HCPCS: 33208; 36415; 71045; 71275; 74176; 76700; 80048; 80053; 81001; 82040; 82272; 83540; 83550; 83605; 83735; 83880; 84100; 84134; 84145; 84484; 85025; 85049; 85379; 85384; 85520; 85610; 85730; 86078; 86850; 86900; 86923; 87040; 87077; 87086; 87186; 87324; 93005; 93970; 96361; 96365; 99156; 99157; C1721; C1779; C1892; G0378; J0690; J0696; J1644; J1650; J1756; J1940; J2250; J2405; J3010; J3480; J3490; J7070; Q9967; J3475; J7030; J7040; P9016

== ENCOUNTER 2018-08-03 09:56 | Inpatient (IN) | payer MEDICARE, OTHER ==
[~2018-08-03] VITALS: Ht 160 cm; Wt 44.8 kg
[~2018-08-03 09:56] MED LIST changes: +APIX5TAB PO; +CEFT2PIG2 IV; +CYAN500L4 PO; +MELA1TAB7 PO
[2018-08-03] MEDS ORDERED: SODIUM CHLORIDE FLUSH 10ML SYR IVF ONE (10:30)
[2018-08-03] MEDS ORDERED: ALBUTEROL SULFATE 2.5 MG/3 ML NPPB ONE (10:30)
[2018-08-03] MEDS ORDERED: VENL37.52 PO (10:36)
[2018-08-03] MEDS ORDERED: [UNRECOGNIZED DRUG - CODE] PO (10:36)
[2018-08-03] MEDS ORDERED: APIX5TAB PO (10:36)
[2018-08-03 10:50] LABS: MEAN CORPUSCULAR HEMOGLOBIN 27.1 pg (27.0-34.8); MEAN CORPUSCULAR HGB CONC 32.6 g/dL (32.4-35.8); MEAN CORPUSCULAR VOLUME 83.2 fL (80-100); MEAN PLATELET VOLUME 9.2 fL (7.4-10.4); PLATELET COUNT 183 x10^3/uL (130-400); RED BLOOD COUNT 3.77 x10^6/uL (3.82-5.3); RED CELL DISTRIBUTION WIDTH 17.3 % (9.6-15.2)
[2018-08-03 10:56] LABS: INTERNATIONAL NORMALIZED RATIO 1.23 (0.93-1.1); PROTHROMBIN TIME 12.9 Seconds (9.6-11.5)
[2018-08-03 10:58] LABS: ALANINE AMINOTRANSFERASE 10 U/L (12-78); ALBUMIN 2.8 g/dL (3.4-5.0); ANION GAP 15 mmol/L (5-15); CALCIUM 7.9 mg/dL (8.5-10.1); CHLORIDE 100 mmol/L (98-107); CREATININE 0.84 mg/dL (0.55-1.02)
[2018-08-03 11:00] LABS: ALKALINE PHOSPHATASE 88 U/L (45-117); BILIRUBIN,TOTAL 0.8 mg/dL (0.2-1.0); TOTAL PROTEIN 7.3 g/dL (6.4-8.2)
[2018-08-03] MEDS ORDERED: FUROSEMIDE 20 MG/2 ML IV ONE (11:30)
[2018-08-03 11:38] LABS: MD YES
[2018-08-03 11:39] LABS: BAND#(MANUAL) 0.28 x10^3/uL; BANDS%(MANUAL) 1 % (0-7); LYMPH#(MANUAL) 0.55 x10^3/uL (1-3.4); LYMPHS% (MANUAL) 2 % (22-44); MONOS#(MANUAL) 0.55 x10^3/uL (0.3-2.7); MONOS% (MANUAL) 2 % (2-9); SEG#(MANUAL) 26.32 x10^3/uL (1.8-6.8); SEGS% (MANUAL) 95 % (42-75)
[2018-08-03 11:40] LABS: TOXIC GRAN 1+
[2018-08-03 11:41] LABS: ANISOCYTOSIS 1+; MICROCYTOSIS 1+; OVALOCYTES 1+; PMNS WITH VACUOLES 1+; POLYCHROMASIA 1+
[2018-08-03 11:42] LABS: <PLATELET ESTIMATE> ADEQUATE; <PLT MORPHOLOGY> NORMAL PLT MORPH
[2018-08-03] MEDS ORDERED: FUROSEMIDE 20 MG/2 ML ONE (11:50)
[2018-08-03] MEDS ORDERED: LORazepam 2 MG/ML, 1ML ONE (11:50)
[2018-08-03 11:54] LABS: TROPONIN I 0.654 ng/mL (0.000-0.045)
[2018-08-03] MEDS ORDERED: LORazepam 2 MG/ML, 1ML IVPush ONE (12:00)
[2018-08-03] MEDS ORDERED: ALBUTEROL SULFATE 2.5 MG/3 ML ONE (12:14)
[2018-08-03 12:27] LABS: CLOSTRIDIUM DIFFICILE ANTIGEN NEGATIVE; CLOSTRIDIUM DIFFICILE TOXIN NEGATIVE (Negative)
[2018-08-03 12:40] LABS: MICROSCOPIC AUTO
[2018-08-03] MEDS ORDERED: CEFTRIAXONE PMX 2GM/50ML 50 ML IV ONE (13:00)
[2018-08-03] MEDS ORDERED: ASPIRIN 81 MG TABLET CHEW PO ONE (13:00)
[2018-08-03] MEDS ORDERED: CEFTRIAXONE PMX 2GM/50ML 50 ML ONE (13:07)
[2018-08-03] MEDS ORDERED: ASPIRIN 81 MG TABLET CHEW ONE (13:08)
[2018-08-03] MEDS ORDERED: LIDOCAINE-MPF 1%, 5ML ONE (13:34)
[2018-08-03] MEDS ORDERED: morphine SULFATE 10 MG/ML, 1ML IVPush PRN (14:00)
[2018-08-03] MEDS ORDERED: ONDANSETRON ODT 4 MG PO PRN (14:00)
[2018-08-03] MEDS ORDERED: PROMETHAZINE 25 MG/ML, 1ML IM PRN (14:00)
[2018-08-03] MEDS ORDERED: GUAIFENESIN/DM 200-20MG, 10ML UDC PO PRN (14:00)
[2018-08-03] MEDS ORDERED: ONDANSETRON 2MG/ML, 2ML IVPush PRN (14:00)
[2018-08-03] MEDS ORDERED: BISACODYL 10 MG SUPP PR PRN (14:00)
[2018-08-03] MEDS ORDERED: DOCUSATE 100 MG CAPSULE PO PRN (14:00)
[2018-08-03] MEDS ORDERED: POLYETHYLENE GLYCOL 17 GM PACKET PO PRN (14:00)
[2018-08-03] MEDS ORDERED: LABETALOL 5MG/ML, 20ML IVPush PRN (14:00)
[2018-08-03] MEDS ORDERED: GABAPENTIN 300 MG CAPSULE PO PRN (14:00)
[2018-08-03] MEDS ORDERED: hydrALAzine 20 MG/ML, 1ML IVPush PRN (14:00)
[2018-08-03] MEDS ORDERED: GABAPENTIN 100 MG CAPSULE PO PRN (14:30)
[2018-08-03] MEDS ORDERED: ACETAMINOPHEN 325 MG TABLET PO PRN (14:30)
[2018-08-03 14:49] LABS: HEMOGLOBIN A1C 5.5 % (4.2-6.3)
[2018-08-03 14:51] LABS: TROPONIN I 0.621 ng/mL (0.000-0.045)
[2018-08-03 14:52] LABS: FREE T4 (FREE THYROXINE) 1.36 ng/dL (0.76-1.46); THYROID STIMULATING HORMONE 16.9 mIU/L (0.358-3.740)
[2018-08-03 15:35] VITALS: BP 147/102
[2018-08-03] MEDS: FUROSEMIDE 20 MG/2 ML IV SCH (17:31)
[2018-08-03] MEDS: FERROUS SULFATE 325 MG TABLET PO SCH (17:32)
[2018-08-03] MEDS: OXYcodone IR 5MG TABLET PO PRN (17:32)
[2018-08-03 19:03] VITALS: BP 119/78
[2018-08-03] MEDS: APIXABAN 5 MG TABLET PO SCH (21:33)
[2018-08-04] VITALS (7 sets, daily range): BP systolic 94–123; BP diastolic 61–77
[2018-08-04 02:21] LABS: BASOPHILS # (AUTO) 0.04 x10^3/uL (0-0.1); BASOPHILS % (AUTO) 0 % (0-1); EOSINOPHILS # (AUTO) 0.03 x10^3/uL (0-0.4); EOSINOPHILS % (AUTO) 0 % (1-7); LYMPHOCYTES # (AUTO) 1.06 x10^3/uL (1-3.4); LYMPHOCYTES % (AUTO) 7 % (22-44); MD NO; MEAN CORPUSCULAR HEMOGLOBIN 28.8 pg (27.0-34.8); MEAN CORPUSCULAR HGB CONC 34.5 g/dL (32.4-35.8); MEAN CORPUSCULAR VOLUME 83.6 fL (80-100); MEAN PLATELET VOLUME 8.7 fL (7.4-10.4); MONOCYTES # (AUTO) 0.58 x10^3/uL (0.2-0.8); MONOCYTES % (AUTO) 4 % (2-9); NEUTROPHILS # (AUTO) 13.55 x10^3/uL (1.8-6.8); NEUTROPHILS % (AUTO) 89 % (42-75); PLATELET COUNT 134 x10^3/uL (130-400); RED BLOOD COUNT 3.22 x10^6/uL (3.82-5.3); RED CELL DISTRIBUTION WIDTH 18.4 % (9.6-15.2)
[2018-08-04 02:31] LABS: ALBUMIN 2.3 g/dL (3.4-5.0); ANION GAP 11 mmol/L (5-15); CALCIUM 7.8 mg/dL (8.5-10.1); CHLORIDE 102 mmol/L (98-107)
[2018-08-04 02:36] LABS: ALANINE AMINOTRANSFERASE 9 U/L (12-78); ALKALINE PHOSPHATASE 76 U/L (45-117); BILIRUBIN,TOTAL 0.5 mg/dL (0.2-1.0); CHOLESTEROL, TOTAL 106 mg/dL (140-239); CREATININE 0.97 mg/dL (0.55-1.02); HDL CHOL % 20 % (28-40); HDL CHOLESTEROL (DIRECT) 21 mg/dL (40-60); LDL CHOLESTEROL,CALCULATED 50 mg/dL (54-169); LDL/HDL RATIO 2.4 (0.5-3.0); TOTAL PROTEIN 6.2 g/dL (6.4-8.2); TRIGLYCERIDES 177 mg/dL (50-200); VLDL CHOLESTEROL 35 mg/dL (0-25)
[2018-08-04 02:38] LABS: TROPONIN I 0.412 ng/mL (0.000-0.045)
[2018-08-04] MEDS: APIXABAN 5 MG TABLET PO SCH ×2 (07:53→19:46)
[2018-08-04] MEDS: FERROUS SULFATE 325 MG TABLET PO SCH (07:53)
[2018-08-04] MEDS: CYANOCOBALAMIN 1,000 MCG TABLET PO SCH (07:53)
[2018-08-04] MEDS: FUROSEMIDE 20 MG/2 ML IV SCH (07:53)
[2018-08-04] MEDS: VENLAFAXINE XR 37.5MG CAP.ER.24H PO SCH (07:53)
[2018-08-04] MEDS ORDERED: ACETAMINOPHEN 325 MG TABLET PO PRN (10:00)
[2018-08-04] MEDS: CARVEDILOL 6.25 MG TABLET PO SCH ×2 (12:01→18:00)
[2018-08-04] MEDS: CEFTRIAXONE PMX 2GM/50ML 50 ML IV SCH (12:03)
[2018-08-04] MEDS ORDERED: ISOSORBIDE DINITRATE 10 MG TABLET PO SCH (16:00)
[2018-08-04] MEDS ORDERED: CARVEDILOL 6.25 MG TABLET PO SCH (18:00)
[2018-08-04] MEDS: ISOSORBIDE DINITRATE 10 MG TABLET PO SCH (20:05)
[2018-08-05] MEDS: OXYcodone IR 5MG TABLET PO PRN (00:36)
[2018-08-05 01:13] VITALS: BP 110/73
[2018-08-05 05:20] LABS: BASOPHILS # (AUTO) 0.03 x10^3/uL (0-0.1); BASOPHILS % (AUTO) 0 % (0-1); EOSINOPHILS # (AUTO) 0.11 x10^3/uL (0-0.4); EOSINOPHILS % (AUTO) 1 % (1-7); LYMPHOCYTES # (AUTO) 1.24 x10^3/uL (1-3.4); LYMPHOCYTES % (AUTO) 9 % (22-44); MD NO; MEAN CORPUSCULAR HEMOGLOBIN 28.3 pg (27.0-34.8); MEAN CORPUSCULAR HGB CONC 34.2 g/dL (32.4-35.8); MEAN CORPUSCULAR VOLUME 82.8 fL (80-100); MEAN PLATELET VOLUME 8.9 fL (7.4-10.4); MONOCYTES # (AUTO) 0.53 x10^3/uL (0.2-0.8); MONOCYTES % (AUTO) 4 % (2-9); NEUTROPHILS # (AUTO) 12.66 x10^3/uL (1.8-6.8); NEUTROPHILS % (AUTO) 87 % (42-75); PLATELET COUNT 154 x10^3/uL (130-400); RED BLOOD COUNT 3.35 x10^6/uL (3.82-5.3)
[2018-08-05 05:59] VITALS: BP 114/74
[2018-08-05] MEDS: CARVEDILOL 6.25 MG TABLET PO SCH ×2 (06:07→16:52)
[2018-08-05 07:35] VITALS: BP 92/61
[2018-08-05] MEDS: ISOSORBIDE DINITRATE 10 MG TABLET PO SCH ×3 (08:46→20:13)
[2018-08-05] MEDS: CYANOCOBALAMIN 1,000 MCG TABLET PO SCH (09:02)
[2018-08-05] MEDS: VENLAFAXINE XR 37.5MG CAP.ER.24H PO SCH (09:02)
[2018-08-05] MEDS: APIXABAN 5 MG TABLET PO SCH ×2 (09:02→20:13)
[2018-08-05] MEDS: CEFTRIAXONE PMX 2GM/50ML 50 ML IV SCH (10:51)
[2018-08-05 13:14] VITALS: BP 117/76
[2018-08-05 16:44] VITALS: BP_SYST 121; BP_SYST 129; BP_DIAS 76; BP_DIAS 83
[2018-08-05 20:09] VITALS: BP 111/71
[2018-08-06 01:51] VITALS: BP 119/66
[2018-08-06 06:29] VITALS: BP 135/75
[2018-08-06] MEDS: CARVEDILOL 6.25 MG TABLET PO SCH (06:30)
[2018-08-06] MEDS: APIXABAN 5 MG TABLET PO SCH ×2 (07:59→20:24)
[2018-08-06] MEDS: CYANOCOBALAMIN 1,000 MCG TABLET PO SCH (07:59)
[2018-08-06] MEDS ORDERED: FERROUS SULFATE 325 MG TABLET PO SCH (08:00)
[2018-08-06] MEDS: ISOSORBIDE DINITRATE 10 MG TABLET PO SCH ×3 (08:00→20:29)
[2018-08-06] MEDS: VENLAFAXINE XR 37.5MG CAP.ER.24H PO SCH (08:00)
[2018-08-06 08:04] VITALS: BP 149/79
[2018-08-06] MEDS: OXYcodone IR 5MG TABLET PO PRN ×2 (08:23→14:32)
[2018-08-06] MEDS: CEFTRIAXONE PMX 2GM/50ML 50 ML IV SCH (11:16)
[2018-08-06 12:45] VITALS: BP 116/69
[2018-08-06] MEDS: CARVEDILOL 12.5 MG TABLET PO SCH (17:23)
[2018-08-06 20:06] VITALS: BP 93/55
[2018-08-06 20:22] VITALS: BP_SYST 90; BP_SYST 95; BP_DIAS 57; BP_DIAS 62
[2018-08-07 01:52] VITALS: BP 112/66
[2018-08-07 06:18] VITALS: BP 135/72
[2018-08-07] MEDS: CARVEDILOL 12.5 MG TABLET PO SCH (06:20)
[2018-08-07 08:49] VITALS: BP 102/61
[2018-08-07] MEDS: VENLAFAXINE XR 37.5MG CAP.ER.24H PO SCH (08:56)
[2018-08-07] MEDS: CYANOCOBALAMIN 1,000 MCG TABLET PO SCH (08:56)
[2018-08-07] MEDS: ISOSORBIDE DINITRATE 10 MG TABLET PO SCH (08:56)
[2018-08-07] MEDS: APIXABAN 5 MG TABLET PO SCH (08:57)
[2018-08-07] MEDS: CEFTRIAXONE PMX 2GM/50ML 50 ML IV SCH (11:35)
[2018-08-07] MEDS ORDERED: MAGNESIUM SULFATE PMX 2GM/50ML 50 ML IV ONE (12:30)
[2018-08-07] MEDS ORDERED: CARV12.543 PO (12:53)
[2018-08-07] MEDS ORDERED: ISOS10TA2 PO (12:53)
[2018-08-07] MEDS ORDERED: CEFT2PIG2 IV (12:53)
[2018-08-07] MEDS ORDERED: HYDR-3341 PO (12:53)
[2018-08-07 13:20] VITALS: BP 111/63
[2018-08-08] MEDS ORDERED: LACT1TAB13 PO (12:50)
== END 2018-08-07 17:18 | DRG 871 ==
LOC: ED 10:13 → EDIP 12:59 → 5SO 15:03
PROVIDERS: ADMIT Internal Medicine; ATTEND Internal Medicine
PROC: 0W993ZZ Drainage of Right Pleural Cavity, Percutaneous Approach (ICD-10-PCS; principal; 2018-08-03)
PROC: 0T9B70Z Drainage of Bladder with Drainage Device, Via Natural or Artificial Opening (ICD-10-PCS; 2018-08-03)
DX: A41.51 Sepsis due to Escherichia coli [E. coli] (principal); J96.01 Acute respiratory failure with hypoxia; E43 Unspecified severe protein-calorie malnutrition; I26.99 Other pulmonary embolism without acute cor pulmonale; J90 Pleural effusion, not elsewhere classified; N12 Tubulo-interstitial nephritis, not specified as acute or chronic; Z68.1 Body mass index [BMI] 19.9 or less, adult; E87.1 Hypo-osmolality and hyponatremia; G93.40 Encephalopathy, unspecified; I50.30 Unspecified diastolic (congestive) heart failure; I11.0 Hypertensive heart disease with heart failure; D64.9 Anemia, unspecified; I08.0 Rheumatic disorders of both mitral and aortic valves; B96.20 Unspecified Escherichia coli [E. coli] as the cause of diseases classified elsewhere; D69.59 Other secondary thrombocytopenia; G62.9 Polyneuropathy, unspecified; Z87.442 Personal history of urinary calculi; Z99.81 Dependence on supplemental oxygen; Z95.0 Presence of cardiac pacemaker; Z66 Do not resuscitate; Z90.49 Acquired absence of other specified parts of digestive tract
CPT/HCPCS: 32555; 36415; 71045; 71275; 80053; 80061; 81001; 82042; 83036; 83605; 83615; 83735; 83880; 84145; 84157; 84439; 84443; 84484; 85025; 85610; 85730; 87040; 87070; 87205; 87324; 88112; 88305; 89051; 93005; 94640; 96365; 96375; 99291; G0378; J0696; J7613; J1940; J2060; J3475